=== PATIENT | male | born 1965 | race Caucasian/White ===

== ENCOUNTER → 2021-03-03 12:30 | Outpatient (BNVA) | payer SELFPAY | PROVIDERS: Visit Provider Nurse Practitioner Family | DX: E11.9 Type 2 diabetes mellitus without complications (principal); I10 Essential (primary) hypertension; Z12.5 Encounter for screening for malignant neoplasm of prostate; E78.2 Mixed hyperlipidemia | CPT/HCPCS: 80053; 80061; 81003; 82306; 83036; 83721; 83735; 84100; 84443; 85025; G0103 ==

== ENCOUNTER → 2021-11-16 08:43 | Outpatient (BNVA) | payer SELFPAY | PROVIDERS: Visit Provider Nurse Practitioner Family | DX: E11.9 Type 2 diabetes mellitus without complications (principal); I10 Essential (primary) hypertension; Z79.899 Other long term (current) drug therapy | CPT/HCPCS: 80053; 81000; 83036; 85025 ==

== ENCOUNTER → 2022-03-16 13:55 | Outpatient (BNVA) | payer SELFPAY | PROVIDERS: Visit Provider Nurse Practitioner | DX: E11.9 Type 2 diabetes mellitus without complications (principal) | CPT/HCPCS: 83036 ==

== ENCOUNTER → 2023-01-22 10:21 | Outpatient (BNVA) | payer SELFPAY | PROVIDERS: PCP Nurse Practitioner Family; Visit Provider Nurse Practitioner | DX: E11.9 Type 2 diabetes mellitus without complications (principal) | CPT/HCPCS: 80053; 80061; 83036; 83721 ==

== ENCOUNTER → 2023-08-06 09:20 | Outpatient (BNVA) | payer SELFPAY | PROVIDERS: PCP Nurse Practitioner Family; Visit Provider Nurse Practitioner Family | DX: E11.9 Type 2 diabetes mellitus without complications (principal); E78.2 Mixed hyperlipidemia; I10 Essential (primary) hypertension; Z79.899 Other long term (current) drug therapy | CPT/HCPCS: 80053; 80061; 81003; 83036; 83721; 84443; 85025 ==

== ENCOUNTER → 2023-08-30 08:40 | Outpatient (BNVA) | payer SELFPAY | PROVIDERS: PCP Nurse Practitioner Family; Visit Provider Nurse Practitioner Family | DX: E11.9 Type 2 diabetes mellitus without complications; Z12.5 Encounter for screening for malignant neoplasm of prostate | CPT/HCPCS: 85025; G0103 ==

== ENCOUNTER 2024-09-07 14:02 | Inpatient (IN) | payer SELFPAY ==
[2024-09-07] VITALS (31 sets, daily range): BP systolic 137–168; BP diastolic 84–95; PULSE 90–104; RESP 10–29; TEMP 36.6; O2SAT 88–98; BMI 34.9; BMI 32.1
[2024-09-07 17:05] LABS: Basophils % 0.1 %; Eosinophils # 0.2 10^3/uL (0.0-0.8); Eosinophils % 0.6 %; Hematocrit 49.5 % (37-53); Lymphocytes # 3.2 10^3/uL (0.8-4.8); Lymphocytes % 13.5 %; Mean Corpuscular HGB Conc 34.3 g/dL (30-55); Mean Corpuscular Hemoglobin 29.1 pg (27-33); Mean Corpuscular Volume 84.8 fl (82-101); Mean Platelet Volume 8.6 fL (7.4-10.4); Monocytes # 1.1 10^3/uL (0.2-0.9); Monocytes % 4.5 %; Neutrophils # 17.59 10^3/uL (1.8-7.7); Nucleated Red Blood Cells % 0 %; Platelet Count 506 10^3/cmm (157-399); Red Blood Count 5.84 10^6/uL (3.85-5.65); White Blood Count 23.59 10^3/uL (3.29-11.43)
[2024-09-07 17:24] LABS: Alanine Aminotransferase 8 U/L (0-41); Albumin Level 3.6 g/dL (3.5-5.2); Alkaline Phosphatase 132 U/L (40-130); Anion Gap 20.4 (5-19); Aspartate Amino Transferase 7 U/L (0-40); Blood Urea Nitrogen 22 mg/dL (6-20); Calcium 9.1 mg/dL (8.5-10.5); Carbon Dioxide 19 mmol/L (22-29); Chloride 90 mmol/L (98-107); Creatinine Clr Calc Pharmacy 72.5125; Globulin 3.3 g/dL (1.3-4.6); Glomerular Filtration Rate 56.7 mL/min (90-130); Osmolality Calculated 288 mOsm/kg (285-295); Potassium 4.4 mmol/L (3.5-5.1); Sodium 125 mmol/L (136-145); Total Bilirubin 0.4 mg/dL (0.15-1.2); Total Protein 6.9 g/dL (6.6-8.7)
[2024-09-07 17:25] LABS: Lactic Sepsis W/Reflex 1.9 mmol/L (0.5-2.2)
[2024-09-07 17:28] LABS: Glucose 542 mg/dL (65-115); Neutrophils % 81.3 %; Slide Review Slide Review Perform
[2024-09-07] MEDS: sodium chloride 0.9% 1,000 ML 999 ML IV (17:28)
[2024-09-07] MEDS: VANCOMYCIN ADD-Vantage 1,000 MG in 0.9% NaCl ADD-Vantage 250 ML 250 MG IV (17:28)
[2024-09-07] MEDS: ondansetron 2 mg/ML SDV 2 mL 4 MG IVP (17:28)
[2024-09-07] MEDS: morphine 4 mg/mL SDV 1 mL IVP (17:28)
--- NOTE | 2024-09-07 17:55 | CTR_ITS ---
PROCEDURE INFORMATION: Exam: CT Abdomen And Pelvis With Contrast Exam date and time: 09/07/2024 6:16 PM Age: 59 years old Clinical indication: Pain; Prior surgery; Surgery date: 6+ months; Surgery type: Exploratory laparotomy; C/O worsening draining perineal wound over the last three weeks. ; Additional info: Including pelvis TECHNIQUE: Imaging protocol: Computed tomography of the abdomen and pelvis with contrast. Radiation optimization: All CT scans at this facility use at least one of these dose optimization techniques: automated exposure control; mA and/or kV adjustment per patient size (includes targeted exams where dose is matched to clinical indication); or iterative reconstruction. Contrast material: OMNI 350; Contrast volume: 100 ml; Contrast route: INTRAVENOUS (IV); COMPARISON: No relevant prior studies available. RADIATION DOSE METRICS: Total DLP (mGy-cm): 1303.63 FINDINGS: Liver: The liver is enlarged. Gallbladder and biliary ducts: The gallbladder is contracted with multiple gallstones. Pancreas: Normal. No ductal dilation. Spleen: The spleen is mildly enlarged measuring 13.2 cm in length. Adrenal glands: Normal. No mass. Kidneys and ureters: Tiny bilateral cortical renal cysts. Stomach and bowel: There is mild diffuse colonic wall thickening. No signs of bowel obstruction. Appendix: No evidence of appendicitis. Intraperitoneal space: Unremarkable. No free air. No significant fluid collection. Vasculature: The abdominal aorta is free of aneurysm and dissection. Calcific plaque involves the abdominal aorta and iliac arteries. Lymph nodes: Unremarkable. No enlarged lymph nodes. Urinary bladder: Unremarkable as visualized. Reproductive: Unremarkable as visualized. Bones/joints: Unremarkable. No acute fracture. Soft tissues: There is a wound involving the right perineum with packing material in place. There is a small amount of subcutaneous emphysema involving the wound likely related to the wound being opened with packing material. There is mild surrounding inflammation at the wound site with skin thickening. No organized fluid collection. CT/CT abdomen pelvis w con* [id number] IMPRESSION: 1. Open wound involving the right perineum with packing material in place. There is surrounding skin thickening and inflammation at the wound site without organized fluid collection. There is a small amount of subcutaneous emphysema involving the wound likely related to the wound being open. 2. Mild diffuse colonic wall thickening. Clinical correlation for a mild colitis recommended. 3. Cholelithiasis. 4. Cortical renal cysts. 5. Hepatosplenomegaly. COMMENTS: Consistent with the [employer]'s Incidental Findings Committee white paper (J Am Jaskaran [employer]iol 2018): Any incidental renal lesion less than 1 cm or classified as too small to characterize, or any incidental cystic renal lesion characterized as simple-appearing, is likely benign. No follow-up imaging is recommended for these lesions per consensus recommendations based on imaging criteria.
--- NOTE | 2024-09-07 17:58 | PM.CONSULT ---
Providers/Reason For Consult Primary Care Provider: Jose A Ward History of Present Illness History of Present Illness Leonard Stevenson is a 59 year old male with past medical history of type 2 diabetes mellitus, hypertension, necrotizing fasciitis of gluteal region and abdomen For now patient has only received 1 L fluid bolus, IV vancomycin and Zosyn. Blood work appreciated. Have requested to finish the sepsis bolus, stat CT abdomen pelvis with contrast, insulin drip and added clindamycin. Have requested for surgical consult. Review of Systems General: Reports: 10 or more systems reviewed and unremarkable except in HPI and below Const: Denies: fever(s), chills, body aches, change in appetite, change in weight, malaise, night sweats, diaphoresis, change in sleep pattern, daytime sleepiness or snoring Eyes: Denies: change in vision, blurry vision, photophobia, eye discomfort or eye discharge ENMT: Denies: throat pain, enlarged tonsils, hoarseness, mouth pain, oral sores, dry mouth, tinnitus, nasal congestion or post nasal drip Card: Denies: chest pain, palpitations, irregular heart rhythm, edema, swelling of feet/ankles, lightheadedness, syncope, pre-syncope, dyspnea on exertion, orthopnea, leg pain with exertion or acrocyanosis Resp: Denies: dyspnea, productive cough, non-productive cough, wheezing, stridor, pain on inspiration, change in phlegm color, hemoptysis or chest congestion GI: Denies: abdominal pain, nausea, vomiting, hematemesis, coffee ground emesis, dysphagia, heartburn, diarrhea, constipation, bloating, GI cramping, change in bowel habits, pain on defecation, hematochezia or melena : Denies: flank pain, difficulty urinating, dysuria, urinary frequency, urinary urgency, urinary hesitancy, urinary dribbling, difficulty starting urination, change in urine stream, nocturia or hematuria Musc: Denies: neck pain, back pain, extremity pain, joint pain, joint swelling, joint redness, joint stiffness or limited range of motion Neuro: Denies: headache(s), numbness in extremities, weakness in extremities, sensory changes, lack of coordination, difficulty walking, frequent falls, dizziness, vertigo, confusion, Slurred speech present, difficulty communicating thoughts or seizure-like activity Psych: Denies: anxiety, depression, mood swings, panic attacks, hopelessness or irritability Endo: Denies: polyuria, polydipsia, tired all the time, cold intolerance, excessive sweating, flushing or heat intolerance Autl/Lymph: Denies: easy bruising or easy bleeding All/Imm: Denies: tongue swelling, facial swelling or acute wheezing Medications/Allergies Home Medications ?Medication ?Instructions ?Recorded ?Confirmed ?Last Taken ?Type rosuvastatin 5 mg tablet See Rx Instructions .Route 08/06/23 03/13/24 Unknown Rx .COMPLEX #90 tabs sildenafil 100 mg tablet (Viagra) 100 mg PO DAILY PRN sexual 08/30/23 03/13/24 Unknown Rx activity 30 days #30 tabs fenofibrate 54 mg tablet See Rx Instructions .Route 09/24/23 03/13/24 Unknown Rx .COMPLEX #30 tabs amlodipine 10 mg tablet 10 mg .Route .COMPLEX 90 days #90 03/13/24 03/13/24 Unknown Rx tabs empagliflozin 10 mg tablet 10 mg PO DAILY 30 days #90 tabs 03/13/24 03/13/24 Unknown Rx (Jardiance) lisinopril 10 mg tablet 10 mg PO DAILY #90 tabs 03/13/24 03/13/24 Unknown Rx sitagliptin phosphate 100 mg See Rx Instructions .Route 03/13/24 03/13/24 Unknown Rx tablet (Januvia) .COMPLEX 90 days #90 tabs metformin 1,000 mg tablet See Rx Instructions .Route 04/17/24 Unknown Rx .COMPLEX #90 tabs Allergies Allergy/AdvReac Type Severity Reaction Status Date / Time No Known Allergies Allergy Unverified 03/13/24 11:22 PFSH Acute PFSH: Medical History (Updated 09/07/24 @ 19:07 by Ron Grande MD) H/O necrotizing fasciitis Erectile dysfunction Diabetes mellitus, type II Prostate cancer screening Mixed hyperlipidemia Medication management Flesh-eating bacteria Hypertension Diabetes mellitus Social History Smoking and tobacco/nicotine status: current every day tobacco/nicotine user Vitals/I&O/Wt Last Vital Signs Temp 97.9 F 09/07/24 14:11 Pulse 102 H 09/07/24 14:11 Resp 17 09/07/24 17:28 BP 137/88 09/07/24 14:11 Pulse Ox 92 09/07/24 17:28 O2 Del Method Room Air 09/07/24 14:11 Weight last 48 hrs Weight 104.326 kg Physical Exam Narrative: General: No acute distress, AO x3, dehydrated HEENT: PERRLA, pupils bilaterally equal and reactive Chest: Normal vesicular breath sounds, no added sounds, equal good air entry bilaterally CVS: S1-S2 regular, no murmurs, no tachycardia, no gallops, no rubs Abdomen: Soft, nontender, no organomegaly, bowel sounds present Neuro: No focal deficits, no facial deformity, Groin: Deep necrotic wound present in right groin including the scrotal region with tunneling seen, foul-smelling with purulent base Quick SOFA Score: Respiratory Rate: 17 Blood Pressure: 137/88 [place] Coma Scale: 15 qSOFA Score: 0 If qSOFA score 2 or greater, continue: PaO2/FiO2 Ratio (mmHg): 380 Blood Pressure Mean: 104 Bilirubin (mg/dl): 0.4 Platelets (x10?/ml): 506 Creatinine (mg/dl): 1.1 SOFA Score: 1 Evaluation: Current stage of sepsis: sepsis Sepsis stage criteria used: [facility] Sep-1 and Sepsis-3 Crystalloid fluids: 30 mL/kg crystalloid fluids ordered and initiated within 3 hours Blood cultures ordered: Yes Possible source: skin/soft tissue Focused Exam: Vital signs: Temp Pulse Resp BP Pulse Ox O2 Del Method 09/07/24 17:28 17 92 09/07/24 14:11 97.9 F 102 H 17 137/88 98 Room Air Date exam was performed: 09/07/24 Time exam was performed: 19:00 Sepsis Screen No Definite Risk 09/07/24 17:45 09/07/24 Respiratory Rate 17 breaths/min (12 - 18) 09/07/24 17:28 09/07/24 Blood Pressure 137/88 mmHg 09/07/24 14:11 09/07/24 [place] Coma Scale Score 15 09/07/24 17:45 09/07/24 Quick SOFA Score 0 09/07/24 19:17 09/07/24 SOFA Score: Sebastian Coma Scale Score 15 09/07/24 17:45 09/07/24 Blood Pressure Mean 104 mmHg 09/07/24 14:11 09/07/24 Total Bilirubin 0.4 mg/dL (0.15-1.2) 09/07/24 16:57 09/07/24 Platelet Count 506 10^3/cmm (157-399) H 09/07/24 16:57 09/07/24 Creatinine 1.1 mg/dL (0.7-1.2) 09/07/24 18:05 09/07/24 SOFA Score 1 09/07/24 19:17 09/07/24 Data 09/07/24 16:57 09/07/24 18:05 Micro: Microbiology 09/07/24 17:10 Blood Culture - Preliminary Blood SPECIMEN COLLECTED 09/07/24 17:09 Blood Culture - Preliminary Blood SPECIMEN COLLECTED A&P Assessment and plan (1) Sepsis: (2) Necrotizing fasciitis of pelvic region and thigh: (3) H/O necrotizing fasciitis: (4) Diabetes mellitus, type II: Qualifiers: Diabetes mellitus skilled nursing insulin use: without termite renewal inspector use Diabetes mellitus complication status: without complication Qualified Code(s): E11.9 - Type 2 diabetes mellitus without complications (5) Hypertension: Qualifiers: Hypertension type: primary hypertension Qualified Code(s): I10 - Essential (primary) hypertension (6) DKA (diabetic ketoacidosis): (7) Hyponatremia: (8) MAGDA (acute kidney injury): Plan Sepsis: Tachycardic, Febrile, Leukocytosis Source: necrotizing fasciitis End organ damage: Acute kidney injury Lactic acid within normal limits Patient did not receive full 30 mL/kg BW. Will give 2 L fluid bolus more to finish the full sepsis bolus. Monitor blood pressures. Keep mean artery pressure 65 mmHg Check blood culture, urine culture, MRSA swab, trend procalcitonin, wound culture. Patient received vancomycin and Zosyn. Continue current antibiotics. Add clindamycin. Necrotizing fasciitis of the scrotal and pelvic region: Will get stat CT abdomen pelvis with contrast including the pelvic region to monitor for the extent of the abscess. Will request a surgical consult stat as patient might require urology or plastic surgery involvement for which he might have to be transferred to tertiary care center. Uncontrolled diabetes mellitus: DKA. In setting of severe infection and sepsis. Fluid bolus as above. Started on insulin drip. For now after fluid bolus start on NS at 75 cc/h. Once blood sugar drops below 250 will start on D5 NS at 75 cc/h. Monitor BMP every 4 hours. Target potassium over 4. Keep NPO. MAGDA/hyponatremia: Most likely in setting of dehydration and DKA. IV fluid as above. Monitor BMP every 4 hour. Guarded prognosis. Given the concern for necrotizing fasciitis of the groin region including the scrotum there is a high chance that patient might need to be transferred to tertiary center for requirement of plastic surgery/urology. Will request for urgent surgical consult and admit accordingly. For now hold off till assessed by surgical team and CT abdomen pelvis is done. PDMP PDMP Reviewed: Not Reviewed Coding Level of Care Code Acute Code for Chg Fwd Diagnoses Sepsis A41.9 Necrotizing fasciitis of pelvic region and thigh M72.6 H/O necrotizing fasciitis Z87.39 Type 2 diabetes mellitus without complication, without long-term current use of insulin E11.9 Diabetes mellitus skilled nursing insulin use: without termite renewal inspector use Diabetes mellitus complication status: without complication Primary hypertension I10 Hypertension type: primary hypertension DKA (diabetic ketoacidosis) E11.10 Hyponatremia E87.1 MAGDA (acute kidney injury) N17.9
[2024-09-07 18:29] LABS: Anion Gap 15.2 (5-19); Blood Urea Nitrogen 20 mg/dL (6-20); Calcium 8.4 mg/dL (8.5-10.5); Carbon Dioxide 20 mmol/L (22-29); Chloride 95 mmol/L (98-107); Glomerular Filtration Rate 68.8 mL/min (90-130); Glucose 468 mg/dL (65-115); Osmolality Calculated 285 mOsm/kg (285-295); Potassium 4.2 mmol/L (3.5-5.1); Sodium 126 mmol/L (136-145)
[2024-09-07] MEDS: piperacillin-tazobactam 3.375 GM in sodium chloride 0.9% (plus) 50 ML IV (18:47)
[2024-09-07 19:13] LABS: Glucose Point of Care 404 mg/dL (70-110)
[2024-09-07] MEDS: iohexol 350 mg/mL 500 mL Btl (per mL) IV (19:20)
--- NOTE | 2024-09-07 20:05 | P.ANESASSM_ITS ---
Pre-Anesthetic Assessment Height/Weight: Height 1.73 m Weight 104.326 kg Temp Pulse Resp BP Pulse Ox O2 Del Method 97.9 F 102 H 17 137/88 92 Room Air 09/07/24 14:11 09/07/24 14:11 09/07/24 17:28 09/07/24 14:11 09/07/24 17:28 09/07/24 14:11 I & D Familial anesthetic complications: None Was Beta Jcarlos taken within 24 hours: N/A Was Clonidine taken within 24 hours: N/A Last intake: > 8 hrs Social Tobacco and No alcohol Exam alert, oriented x 3, clear to auscultation bilaterally and regular rate & rhythm Airway Mallampati: Class IV Dentition: false CV/HEM Hypertension Metabolic Diabetes Mellitus, Hyperlipidemia and Morbid Obesity Anesthetic Plan ASA status: 3E Anesthesia: General Risk of > 500 ml blood loss (7ml/kg in children): No Medications/Allergies Home Medications ?Medication ?Instructions ?Recorded ?Confirmed ?Last Taken ?Type rosuvastatin 5 mg tablet See Rx Instructions .Route 0 08/06/23 03/13/24 Unknown Rx .COMPLEX #90 tabs sildenafil 100 mg tablet (Viagra) 100 mg PO DAILY PRN sexual 08/30/23 03/13/24 Unknown Rx activity 30 days #30 tabs fenofibrate 54 mg tablet See Rx Instructions .Route 0 09/24/23 03/13/24 Unknown Rx .COMPLEX #30 tabs amlodipine 10 mg tablet 10 mg .Route .COMPLEX 90 day s #90 03/13/24 03/13/24 Unknown Rx tabs empagliflozin 10 mg tablet 10 mg PO DAILY 30 days #90 tabs 03/13/24 03/13/24 Unknown Rx (Jardiance) lisinopril 10 mg tablet 10 mg PO DAILY #90 tabs 03/0203/13/24 Unknown Rx sitagliptin phosphate 100 mg See Rx Instructions .Rout e 03/13/24 03/13/24 Unknown Rx tablet (Januvia) .COMPLEX 90 days #90 tabs metformin 1,000 mg tablet See Rx Instructions .Route 1 Unknown Rx .COMPLEX #90 tabs Allergies Allergy/AdvReac Type Severity Reaction Status Date / Time No Known Allergies Allergy Unverified 03/13/24 11:22 [facility] Anesthesia Medical History (Updated 09/07/24 @ 19:07 by Ron Grande MD) H/O necrotizing fasciitis Erectile dysfunction Diabetes mellitus, type II Prostate cancer screening Mixed hyperlipidemia Medication management Flesh-eating bacteria Hypertension Diabetes mellitus Social History Smoking and tobacco/nicotine status: current every day tobacco/nicotine user Data Anesthesia 09/07/24 16:57 09/07/24 18:05 Short CBC 09/07/24 Range/Units 16:57 WBC 23.59 H (3.29-11.43) 10^3/uL Hgb 17.00 H (11.27-16.99) g/dL Hct 49.5 (37-53) % MCV 84.8 (82-101) fl Plt Count 506 H (157-399) 10^3/cmm Neut % (Auto) 81.3 % Neut # (Auto) 17.59 H (1.8-7.7) 10^3/uL BMP 09/07/24 09/07/24 16:57 18:05 Sodium 125 L 126 L Potassium 4.4 4.2 Chloride 90 L 95 L Carbon Dioxide 19 L 20 L BUN 22 H 20 Creatinine 1.3 H 1.1 Glucose 542 H* 468 H Calcium 9.1 8.4 L Liver Function 09/07/24 Range/Units 16:57 Total Bilirubin 0.4 (0.15-1.2) mg/dL AST 7 (0-40) U/L ALT 8 (0-41) U/L Alkaline Phosphatase 132 H (40-130) U/L Albumin 3.6 (3.5-5.2) g/dL Microbiology 09/07/24 17:10 Blood Culture - Preliminary Blood SPECIMEN COLLECTED 09/07/24 17:09 Blood Culture - Preliminary Blood SPECIMEN COLLECTED Cardiac Studies: 2 No Data to Display
--- NOTE | 2024-09-07 20:05 | PM.HP ---
Providers/Chief Complaint Primary Care Provider: Jose A Ward Chief Complaint: boil in groin area History of Present Illness Leonard Stevenson is a 59 year old male with past medical history of uncontrolled type 2 diabetes mellitus, hypertension, history of necrotizing fasciitis presents to the ER today because of swelling in his groin with discharge and pain getting worse over last 4 days. Discharge has been getting foul-smelling. In the ER there was a concern for abscess for which he received 1 L of IV fluid bolus, IV vancomycin and Zosyn. Hospitalist service was management. On review of labs it seems patient is having DKA with concerns for necrotizing fasciitis. Have requested for a surgical consult stat to determine the need for transfer versus immediate OR, CT abdomen pelvis with contrast to rule out urological involvement and extent of the infection, have requested for finishing of sepsis bolus, start insulin drip as per DKA protocol, added IV clindamycin to the medical treatment. Review of Systems General: Reports: 10 or more systems reviewed and unremarkable except in HPI and below Const: Denies: fever(s), chills, body aches, change in appetite, change in weight, malaise, night sweats, diaphoresis, change in sleep pattern, daytime sleepiness or snoring Eyes: Denies: change in vision, blurry vision, photophobia, eye discomfort or eye discharge ENMT: Denies: throat pain, enlarged tonsils, hoarseness, mouth pain, oral sores, dry mouth, tinnitus, nasal congestion or post nasal drip Card: Denies: chest pain, palpitations, irregular heart rhythm, edema, swelling of feet/ankles, lightheadedness, syncope, pre-syncope, dyspnea on exertion, orthopnea, leg pain with exertion or acrocyanosis Resp: Denies: dyspnea, productive cough, non-productive cough, wheezing, stridor, pain on inspiration, change in phlegm color, hemoptysis or chest congestion GI: Denies: abdominal pain, nausea, vomiting, hematemesis, coffee ground emesis, dysphagia, heartburn, diarrhea, constipation, bloating, GI cramping, change in bowel habits, pain on defecation, hematochezia or melena : Denies: flank pain, difficulty urinating, dysuria, urinary frequency, urinary urgency, urinary hesitancy, urinary dribbling, difficulty starting urination, change in urine stream, nocturia or hematuria Musc: Denies: neck pain, back pain, extremity pain, joint pain, joint swelling, joint redness, joint stiffness or limited range of motion Neuro: Denies: headache(s), numbness in extremities, weakness in extremities, sensory changes, lack of coordination, difficulty walking, frequent falls, dizziness, vertigo, confusion, Slurred speech present, difficulty communicating thoughts or seizure-like activity Psych: Denies: anxiety, depression, mood swings, panic attacks, hopelessness or irritability Endo: Denies: polyuria, polydipsia, tired all the time, cold intolerance, excessive sweating, flushing or heat intolerance Atul/Lymph: Denies: easy bruising or easy bleeding All/Imm: Denies: tongue swelling, facial swelling or acute wheezing Medications/Allergies Home Medications ?Medication ?Instructions ?Recorded ?Confirmed ?Last Taken ?Type rosuvastatin 5 mg tablet See Rx Instructions .Route 08/06/23 03/13/24 Unknown Rx .COMPLEX #90 tabs sildenafil 100 mg tablet (Viagra) 100 mg PO DAILY PRN sexual 08/30/23 03/13/24 Unknown Rx activity 30 days #30 tabs fenofibrate 54 mg tablet See Rx Instructions .Route 09/24/23 03/13/24 Unknown Rx .COMPLEX #30 tabs amlodipine 10 mg tablet 10 mg .Route .COMPLEX 90 days #90 03/13/24 03/13/24 Unknown Rx tabs empagliflozin 10 mg tablet 10 mg PO DAILY 30 days #90 tabs 03/13/24 03/13/24 Unknown Rx (Jardiance) lisinopril 10 mg tablet 10 mg PO DAILY #90 tabs 03/13/24 03/13/24 Unknown Rx sitagliptin phosphate 100 mg See Rx Instructions .Route 03/13/24 03/13/24 Unknown Rx tablet (Januvia) .COMPLEX 90 days #90 tabs metformin 1,000 mg tablet See Rx Instructions .Route 04/17/24 Unknown Rx .COMPLEX #90 tabs Allergies Allergy/AdvReac Type Severity Reaction Status Date / Time No Known Allergies Allergy Unverified 03/13/24 11:22 PFSH Acute PFSH: Medical History (Updated 09/07/24 @ 20:17 by Jj Wan MD) H/O necrotizing fasciitis Erectile dysfunction Diabetes mellitus, type II Prostate cancer screening Mixed hyperlipidemia Medication management Flesh-eating bacteria Hypertension Diabetes mellitus Social History Smoking and tobacco/nicotine status: current every day tobacco/nicotine user Vitals/I&O/Wt Last Vital Signs Temp 97.9 F 09/07/24 14:11 Pulse 102 H 09/07/24 14:11 Resp 17 09/07/24 17:28 BP 137/88 09/07/24 14:11 Pulse Ox 92 09/07/24 17:28 O2 Del Method Room Air 09/07/24 14:11 09/07/24 09/07/24 09/07/24 07:59 14:59 22:59 Intake Total 1250 / 1250 Balance 1250 / 1250 Weight last 48 hrs Weight 104.326 kg Physical Exam Narrative: General: No acute distress, AO x3 HEENT: PERRLA, pupils bilaterally equal and reactive Chest: Normal vesicular breath sounds, no added sounds, equal good air entry bilaterally CVS: S1-S2 regular, no murmurs, no tachycardia, no gallops, no rubs Abdomen: Soft, nontender, no organomegaly, bowel sounds present Neuro: No focal deficits, no facial deformity, AO x3, power 5/5 in all limbs Skin: OTHER: Data 09/07/24 16:57 09/07/24 18:05 Micro: Microbiology 09/07/24 17:10 Blood Culture - Preliminary Blood SPECIMEN COLLECTED 09/07/24 17:09 Blood Culture - Preliminary Blood SPECIMEN COLLECTED A&P Assessment and plan (1) Necrotizing fasciitis of pelvic region and thigh: (2) Sepsis: (3) DKA (diabetic ketoacidosis): (4) Diabetes mellitus, type II: Qualifiers: Diabetes mellitus complication status: without complication Diabetes mellitus custodial insulin use: without custodial use Qualified Code(s): E11.9 - Type 2 diabetes mellitus without complications (5) MAGDA (acute kidney injury): (6) Hyponatremia: (7) Hypertension: Qualifiers: Hypertension type: primary hypertension Qualified Code(s): I10 - Essential (primary) hypertension (8) H/O necrotizing fasciitis: Plan Sepsis: Tachycardic, Febrile, Leukocytosis Source: necrotizing fasciitis End organ damage: Acute kidney injury Lactic acid within normal limits Patient did not receive full 30 mL/kg BW. Will give 2 L fluid bolus more to finish the full sepsis bolus. Monitor blood pressures. Keep mean artery pressure 65 mmHg Check blood culture, urine culture, MRSA swab, trend procalcitonin, wound culture. Patient received vancomycin and Zosyn. Continue current antibiotics. Add clindamycin. Cooney catheter. Necrotizing fasciitis of the scrotal and pelvic region: Will get stat CT abdomen pelvis with contrast including the pelvic region to monitor for the extent of the abscess. Will request a surgical consult stat as patient might require urology or plastic surgery involvement for which he might have to be transferred to tertiary care center. Uncontrolled diabetes mellitus: DKA. In setting of severe infection and sepsis. Fluid bolus as above. Started on insulin drip. For now after fluid bolus start on NS at 75 cc/h. Once blood sugar drops below 250 will start on D5 NS at 75 cc/h. Monitor BMP every 4 hours. Target potassium over 4. Keep NPO. MAGDA/hyponatremia: Most likely in setting of dehydration and DKA. IV fluid as above. Monitor BMP every 4 hour. Strict input an doutput charting Guarded prognosis. Given the concern for necrotizing fasciitis of the groin region including the scrotum there is a high chance that patient might need to be transferred to tertiary center for requirement of plastic surgery/urology. Will request for urgent surgical consult and admit accordingly. For now hold off till assessed by surgical team and CT abdomen pelvis is done. Full code, n.p.o. Heparin 5000 every 12 hours for DVT prophylaxis Protonix OPD prophylaxis Analgesia: Dilaudid 1 every 4 hours as needed Glycemic control: DKA protocol insulin drip Nutrition: N.p.o. CODE STATUS: Full code PUD prophylaxis: Protonix DVT prophylaxis: Heparin 5000 Q12 hourly for DVT prophylaxis Admit to ICU. This documentation was created by [employer] fixed wing aircraft flight mechanic software. Every effort was made to ensure accuracy of fixed wing aircraft flight mechanic. Any obvious errors or omissions should be clarified with the author of the document. PDMP PDMP Reviewed: Not Reviewed Attestations Medical Necessity Statement*: Admission for more than 2 midnights for management of necrotizing fasciitis, DKA, MAGDA, severe sepsis Critical Care Time: The high probability of a clinically significant, sudden or life threatening deterioration of the patient's [endocrine, renal, surgical] system(s) required my full and direct attention, intervention and personal management. The critical care time is as shown. This time is in addition to time spent performing any reported procedures but includes the following: [x] Data and vital sign review and interpretation [x] Patient assessment, examination and intervention [x] Documentation [x] Medication orders and management Critical Care Time (min): 90 Coding Level of Care Code Critical Care >/= 30 minutes Critical care time (in minutes): 90 The high probability of a clinically significant, sudden or life threatening deterioration, as referenced in this documentation, required my full and direct attention, intervention and personal management. The critical care time shown is in addition to time spent performing any reported separately billable procedures and includes the following: [x] Data and vital sign review and interpretation [x] Patient assessment, examination and intervention [x] Medication orders and management [x] Patient/Family updates as able [x] Care Coordination and Documentation. Other Coding Information This patient has a high probability of clinically significant, sudden or life threatening deterioration of the patient's (neurological/pulmonary/cardiac/renal/ID/endocrine) systems required my full, direct attention, the highest level of physician preparedness for urgent intervention and personal management. I managed/supervised life or organ supporting interventions that required frequent physician assessment. I devoted my full attention in the ICU to the direct care of this patient for the period of time indicated above. Time I spent with family or surrogate(s) is included only if the patient was incapable of providing necessary information or participating in decision making. This time includes the following services provided: Telemetry review Hemodynamic interpretation, assessment and management Review and interpretation of CXR Review and interpretation of lab values Review and interpretation of microbiologic data and culture results Review of medications and administration Review and interpretation of Nutrition requirements and management Discussion of management with other consultants and services Clinical update to family members Diagnoses Necrotizing fasciitis of pelvic region and thigh M72.6 Sepsis A41.9 DKA (diabetic ketoacidosis) E11.10 Type 2 diabetes mellitus without complication, without long-term current use of insulin E11.9 Diabetes mellitus complication status: without complication Diabetes mellitus custodial insulin use: without termite control servicer use MAGDA (acute kidney injury) N17.9 Hyponatremia E87.1 Primary hypertension I10 Hypertension type: primary hypertension H/O necrotizing fasciitis Z87.39
--- NOTE | 2024-09-07 20:08 | W.ED.SKABFB ---
HPI - Skin/Abscess/Foreign Bdy General: Chief complaint: Skin/Abscess/Foreign Body Stated complaint: boil in groin area Time Seen by Provider: 09/07/24 16:17 History of Present Illness: This patient is a 59-year-old white male who presents to the emergency department stating that he noticed an abscess in his right groin. It started draining today massive amounts of pus. Patient states he has a history of flesh eating bacteria infection . He needed debridement of skin over the abdomen and the buttock several years ago. Patient is a type II diabetic. Related Data Previous Rx's ?Medication ?Instructions ?Recorded rosuvastatin 5 mg tablet See Rx Instructions .Route 08/06/23 .COMPLEX #90 tabs sildenafil 100 mg tablet (Viagra) 100 mg PO DAILY PRN sexual 08/30/23 activity 30 days #30 tabs fenofibrate 54 mg tablet See Rx Instructions .Route 09/24/23 .COMPLEX #30 tabs amlodipine 10 mg tablet 10 mg .Route .COMPLEX 90 days #90 03/13/24 tabs empagliflozin 10 mg tablet 10 mg PO DAILY 30 days #90 tabs 03/13/24 (Jardiance) lisinopril 10 mg tablet 10 mg PO DAILY #90 tabs 03/13/24 sitagliptin phosphate 100 mg See Rx Instructions .Route 03/13/24 tablet (Januvia) .COMPLEX 90 days #90 tabs metformin 1,000 mg tablet See Rx Instructions .Route 04/17/24 .COMPLEX #90 tabs Allergies Allergy/AdvReac Type Severity Reaction Status Date / Time No Known Allergies Allergy Unverified 03/13/24 11:22 Review of Systems General: Reports: 10 or more systems reviewed and unremarkable except in HPI and below Skin/Breast: Reports: other (Open wound right groin draining.) [facility] ED PFSH: Medical History (Updated 09/07/24 @ 19:07 by Ron Grande MD) H/O necrotizing fasciitis Erectile dysfunction Diabetes mellitus, type II Prostate cancer screening Mixed hyperlipidemia Medication management Flesh-eating bacteria Hypertension Diabetes mellitus Social History Smoking and tobacco/nicotine status: current every day tobacco/nicotine user Physical Exam Const: COMMON NORMALS: no acute distress, patient oriented x3 and no limitations GENERAL APPEARANCE: cooperative and comfortable HENMT: COMMON NORMALS: normocephalic, atraumatic, Normal nasal mucous membranes and turbinates present, moist oral mucous membranes and oropharynx normal HEAD & SCALP: normal to inspection, normocephalic and atraumatic FACE & SINUS: normal facial exam NOSE: Normal nasal mucous membranes and turbinates present Eye: COMMON NORMALS: Equal, round and reactive pupils present, EOMs intact bilaterally and conjunctivae normal GENERAL EYE: appearance normal, both eyes and all related structures CONJUNCTIVA: Yes conjunctivae normal PUPIL: Yes Equal, round and reactive pupils present Neck/C-Spine: COMMON NORMALS: supple and no JVD Chest: COMMONS NORMALS: normal inspection of the chest Resp: COMMON NORMALS: normal respiratory effort and clear to auscultation bilaterally AUSCULTATION: clear to auscultation bilaterally Cardio: COMMON NORMALS: no JVD, regular rate, regular rhythm, No gallops present (Cardio), No murmurs present (Cardio) and No rub (Cardio) RATE: regular rate RHYTHM: regular rhythm GI: COMMON NORMALS: Normal to inspection, nondistended, normoactive bowel sounds present, Soft to palpation and non-tender AUSCULTATION: Yes normoactive bowel sounds PALPATION: Yes Soft to palpation : COMMON NORMALS: Yes no CVA tenderness BLADDER/KIDNEY EXAM: Yes no CVA tenderness Back/Pelvis: COMMON NORMALS: no CVA tenderness and thoracic and lumbar spine normal to inspection Extremity: COMMON NORMALS: normal to inspection Neuro: COMMON NORMALS: patient oriented x3 and CN's II-XII intact bilaterally Psych: COMMON NORMALS: mental status grossly normal, Normal thought process present and cooperative THOUGHT PROCESS: Normal thought process present Skin: COMMON NORMALS: no rashes or lesions noted, turgor normal and no jaundice NARRATIVE SKIN EXAM: There is a large open wound in the right groin with copious amounts of purulent drainage and very foul-smelling. skin around the margins. GENERAL SKIN EXAM: no rashes or lesions noted and turgor normal Course Vital Signs: Vital signs: Vital Signs Temperature 97.9 F 09/07/24 14:11 Pulse Rate 102 H 09/07/24 14:11 Respiratory Rate 17 09/07/24 17:28 Blood Pressure 137/88 09/07/24 14:11 Pulse Oximetry 92 09/07/24 17:28 Oxygen Delivery Me thod Room Air 09/07/24 14:11 MDM - Skin/Abscess/Foreign Bdy Medicial Decision Making White blood cell count is 23.6. CMP revealed a sodium of 125 and a blood sugar of 542. Lactic acid was 1.9. Patient was given Zosyn and vancomycin. I initially discussed the case with Dr. Wilkerson,, hospitalist. He wanted me to discuss the case with general surgeon. I then discussed the case with Dr. Irby. Patient was taken to the operating room for cleanout. Patient will be admitted to the intensive care unit. Dr. Wilkerson will write the admission orders. Lab Data 09/07/24 16:57 09/07/24 18:05 Laboratory Results WBC 23.59 10^3/uL (3.29-11.43) H 09/07/24 16:57 RBC 5.84 10^6/uL (3.85-5.65) H 09/07/24 16:57 Hgb 17.00 g/dL (11.27-16.99) H 09/07/24 16:57 Hct 49.5 % (37-53) 09/07/24 16:57 MCV 84.8 fl (82-101) 09/07/24 16:57 MCH 29.1 pg (27-33) 09/07/24 16:57 MCHC 34.3 g/dL (30-55) 09/07/24 16:57 RDW 12.0 % (12.1-15.1) L 09/07/24 16:57 Plt Count 506 10^3/cmm (157-399) H 09/07/24 16:57 MPV 8.6 fL (7.4-10.4) 09/07/24 16:57 Neut % (Auto) 81.3 % 09/07/24 16:57 Lymph % (Auto) 13.5 % 09/07/24 16:57 [place] % (Auto) 4.5 % 09/07/24 16:57 Eos % (Auto) 0.6 % 09/07/24 16:57 Baso % (Auto) 0.1 % 09/07/24 16:57 Neut # (Auto) 17.59 10^3/uL (1.8-7.7) H 09/07/24 16:57 Lymph # (Auto) 3.2 10^3/uL (0.8-4.8) 09/07/24 16:57 [place] # (Auto) 1.1 10^3/uL (0.2-0.9) H 09/07/24 16:57 Eos # (Auto) 0.2 10^3/uL (0.0-0.8) 09/07/24 16:57 Baso # (Auto) 0.0 10^3/uL (0.0-0.1) 09/07/24 16:57 Nucleated RBC % (auto) 0 % 09/07/24 16:57 Nucleated RBCs # 0.0 /100WBC 09/07/24 16:57 Sodium 126 mmol/L (136-145) L 09/07/24 18:05 Potassium 4.2 mmol/L (3.5-5.1) 09/07/24 18:05 Chloride 95 mmol/L (98-107) L 09/07/24 18:05 Carbon Dioxide 20 mmol/L (22-29) L 09/07/24 18:05 Anion Gap 15.2 (5-19) 09/07/24 18:05 BUN 20 mg/dL (6-20) 09/07/24 18:05 Creatinine 1.1 mg/dL (0.7-1.2) 09/07/24 18:05 GFR Calculation 68.8 mL/min (90-130) L 09/07/24 18:05 Glucose 468 mg/dL (65-115) H 09/07/24 18:05 POC Glucose 404 mg/dL (70-110) H 09/07/24 18:50 Calculated Osmolality 285 mOsm/kg (285-295) 09/07/24 18:05 Lactic Acid 1.9 mmol/L (0.5-2.2) 09/07/24 16:57 Calcium 8.4 mg/dL (8.5-10.5) L 09/07/24 18:05 Total Bilirubin 0.4 mg/dL (0.15-1.2) 09/07/24 16:57 AST 7 U/L (0-40) 09/07/24 16:57 ALT 8 U/L (0-41) 09/07/24 16:57 Alkaline Phosphatase 132 U/L (40-130) H 09/07/24 16:57 Total Protein 6.9 g/dL (6.6-8.7) 09/07/24 16:57 Albumin 3.6 g/dL (3.5-5.2) 09/07/24 16:57 Globulin 3.3 g/dL (1.3-4.6) 09/07/24 16:57 All radiology interpretation(s) finalized by discharge Discharge Plan Discharge Condition: Stable Prescriptions: No Action sildenafil [Viagra] 100 mg tablet 100 mg PO DAILY PRN (Reason: sexual activity) 30 Days Qty: 30 1RF Rx Instructions: administer 30 minutes to 4 hours before activity rosuvastatin 5 mg tablet See Rx Instructions .ROUTE .COMPLEX Qty: 90 2RF Dose Instruction: TAKE 1 TABLET BY MOUTH DAILY Rx Instructions: TAKE 1 TABLET BY MOUTH DAILY amlodipine 10 mg tablet 10 mg .ROUTE .COMPLEX 90 Days Qty: 90 3RF Rx Instructions: 10 mg; Januvia 100 mg tablet See Rx Instructions .ROUTE .COMPLEX 90 Days Qty: 90 1RF Dose Instruction: TAKE 1 TABLET BY MOUTH EVERY DAY Rx Instructions: TAKE 1 TABLET BY MOUTH EVERY DAY lisinopril 10 mg tablet 10 mg PO DAILY Qty: 90 1RF Jardiance 10 mg tablet 10 mg PO DAILY 30 Days Qty: 90 1RF fenofibrate 54 mg tablet See Rx Instructions .ROUTE .COMPLEX Qty: 30 0RF Dose Instruction: TAKE 1 TABLET BY MOUTH EVERY DAY Rx Instructions: TAKE 1 TABLET BY MOUTH EVERY DAY metformin 1,000 mg tablet See Rx Instructions .ROUTE .COMPLEX Qty: 90 1RF Dose Instruction: TAKE 1 TABLET BY MOUTH TWICE DAILY Rx Instructions: TAKE 1 TABLET BY MOUTH TWICE DAILY Referrals: Jose A Ward, ANTONINO [Primary Care Provider] - Print Language: Mongolian Coding Level of Care Code ED Paint Line Operator for Jessy Nix
--- NOTE | 2024-09-07 20:19 | P.CONIM_ITS ---
Providers/Reason For Consult 2 Consulting Physician/Specialty*: General Surgery Reason for Consult*: Perineal soft tissue infection Primary Care Provider: Jose A Ward History of Present Illness History of Present Illness Leonard Stevenson is a 59 year old male with history of poor control diabetes, previous necrotizing soft tissue infection who presents with 4 days of pain in the right perineal area radiating to the right groin. He noticed significant drainage in this 4 days and decided to present to the emergency room today. He was noted to have a very large wound on the perineal area with significant necrosis of the subcutaneous tissue concerning for necrotizing soft tissue infection. In addition he has noted to be on DKA. Review of Systems 2 General: Reports: 10 or more systems reviewed and unremarkable except in HPI and below Medications/Allergies Home Medications ?Medication ?Instructions ?Recorded ?Confirmed ?Last Taken ?Type rosuvastatin 5 mg tablet See Rx Instructions .Route 0 08/06/23 03/13/24 Unknown Rx .COMPLEX #90 tabs sildenafil 100 mg tablet (Viagra) 100 mg PO DAILY PRN sexual 08/30/23 03/13/24 Unknown Rx activity 30 days #30 tabs fenofibrate 54 mg tablet See Rx Instructions .Route 0 09/24/23 03/13/24 Unknown Rx .COMPLEX #30 tabs amlodipine 10 mg tablet 10 mg .Route .COMPLEX 90 day s #90 03/13/24 03/13/24 Unknown Rx tabs empagliflozin 10 mg tablet 10 mg PO DAILY 30 days #90 tabs 03/13/24 03/13/24 Unknown Rx (Jardiance) lisinopril 10 mg tablet 10 mg PO DAILY #90 tabs 03/0203/13/24 Unknown Rx sitagliptin phosphate 100 mg See Rx Instructions .Rout e 03/13/24 03/13/24 Unknown Rx tablet (Januvia) .COMPLEX 90 days #90 tabs metformin 1,000 mg tablet See Rx Instructions .Route 1 Unknown Rx .COMPLEX #90 tabs Allergies Allergy/AdvReac Type Severity Reaction Status Date / Time No Known Allergies Allergy Unverified 03/13/24 11:22 PFSH Acute 2 PFSH: Medical History (Updated 09/07/24 @ 20:17 by Jj Wan MD) H/O necrotizing fasciitis Erectile dysfunction Diabetes mellitus, type II Prostate cancer screening Mixed hyperlipidemia Medication management Flesh-eating bacteria Hypertension Diabetes mellitus Social History Smoking and tobacco/nicotine status: current every day tobacco/nicotine user Vitals/I&O/Wt Last Vital Signs Temp 97.9 F 09/07/24 14:11 Pulse 102 H 09/07/24 14:11 Resp 17 09/07/24 17:28 BP 137/88 09/07/24 14:11 Pulse Ox 92 09/07/24 17:28 O2 Del Method Room Air 09/07/24 14:11 09/07/24 09/07/24 09/07/24 07:59 14:59 22:59 Intake Total 1250 / 1250 Balance 1250 / 1250 Weight last 48 hrs Weight 230 lb Physical Exam 2 GI: OTHER: Abdomen soft nontender nondistended. : OTHER: At the level of the right perineal area there is a large wound measuring about 5 x 10 cm there is abundant necrosis of the subcutaneous tissue there is moderate drainage the wound appears to track up deep into the perineum. Data 09/07/24 16:57 09/07/24 18:05 Micro: Microbiology 09/07/24 17:10 Blood Culture - Preliminary Blood SPECIMEN COLLECTED 09/07/24 17:09 Blood Culture - Preliminary Blood SPECIMEN COLLECTED A&P Assessment and plan (1) DKA (diabetic ketoacidosis): (2) Sepsis: (3) Necrotizing fasciitis of pelvic region and thigh: Plan After complete history physical examination and review of all available clinical data the following is my assessment. Patient presents with a necrotizing soft tissue infection of the perineum. He has had previous NSTI send abdominal wall requiring extensive surgery. This time presents with already draining wound with significant necrosis of the subcutaneous tissue. After evaluation of this wound and discussion with ER team and medical team we have decided to bring the patient to the OR for debridement and washout of the perineal necrotizing soft tissue infection. I discussed with all the risk and benefits of the procedure with ablation including the risks of bleeding, infection, progression into for near skin green, need for additional interventions, poor wound healing, need for tissue reconstruction for closure. Patient shows understanding agrees with the plan. Will proceed to the OR tonight. Patient will be started on broad- spectrum antibiotics and medical management will be done by primary team. PDMP PDMP Reviewed: Not Reviewed Coding Level of Care Code 85872 Diagnoses DKA (diabetic ketoacidosis) E11.10 Sepsis A41.9 Necrotizing fasciitis of pelvic region and thigh M72.6
[2024-09-07 20:35] LABS: Estmated Average Glucose 324; Hemoglobin A1C 12.9 % (4.0-6.0); Procalcitonin 0.15 ng/mL (0-0.5); Thyroid Stimulating Hormone 1.23 uIU/mL (0.27-4.20)
--- NOTE | 2024-09-07 21:26 | PM.OP ---
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 Procedure done: Chart debridement and washout of necrotizing soft tissue infection of the perineum Specimens removed/disposition: Tissue for culture and wound cultures Surgeon: Julio Irby MD Product Development Specialist: POOJA OR Staff Estimated blood loss: 5 Brief History: 59-year-old male presents with DKA and a necrotizing soft tissue infection of the perineum, after discussion we will resume benefits with proceed to the OR for debridement and washout. Procedure: The patient was brought into the OR, placed in the supine position. General anesthesia was given. The patient was placed in the lithotomy position and the perineum was prepped and draped in the usual sterile fashion. A timeout was conducted. A large wound on the right side of the perineum tracking to the right gluteal area and measuring about 10 x 6 cm was noted. The lower two thirds of the wound were covered with necrotic skin and subcutaneous tissue, there was drainage of purulent material at that level. I took wound cultures. I then proceeded to do a sharp debridement with a Metzenbaum scissor, all the necrotic tissue of the lower aspect of the wound was removed and sent to pathology for tissue culture. I then proceeded to explore the wound and noted that there was no additional tracking into the deep tissue or the scrotal region. I then used a curette to remove all the necrotic tissue from the base of the wound. I was able to achieve a nice bed of healthy bleeding tissue in the whole extension of the wound. I then proceeded to irrigate the wound with a Pulsavac using 2 L of saline. Hemostasis was then achieved and the wound was packed with iodoform soaked Kerlix. A sterile dressing was applied. The final wound measurements were 10 cm x 6 cm x 3 cm with a superomedial undermining of 3 cm and inferomedial undermining of 2 cm. The patient tolerated well the procedure, all the end of the procedure all counts were correct the patient was extubated and transferred to the ICU in stable condition
[2024-09-07 22:06] LABS: Glucose Point of Care 322 mg/dL (70-110)
--- NOTE | 2024-09-07 22:11 | PM.MISC ---
Miscellaneous Note Purpose of Documentation: Postop: Anion gap is closed I will discontinue DKA protocol I will give him Lantus 10 units along sliding scale and continue normal saline Blood sugar 322, will give insulin according to sliding scale for now and let him eat
--- NOTE | 2024-09-07 22:20 | PC.NURSE ---
Insulin Drip Insulin drip discussed with Dr. Pina; physician to place orders for lantus and discontinuation of insulin drip.
[2024-09-07] MEDS: HYDROmorphone 0.5 MG/0.5 ML INJ 1 MG IVP (22:58)
[2024-09-07] MEDS: insulin glargine 100 units/1 mL 10 UNIT SUBCUT (22:59)
[2024-09-07] MEDS: sodium chloride 0.9% 1,000 ML 75 ML IV (23:13)
[2024-09-07 23:14] LABS: Glucose Point of Care 348 mg/dL (70-110)
[2024-09-07] MEDS: clindamycin 900 MG/50 ML PREMIX 100 MG IV (23:17)
[2024-09-07] MEDS: pantoprazole 40 mg SDV IVP (23:20)
[2024-09-07] MEDS: heparin 5,000 unit/mL INJ 1 mL 5000 UNIT SUBCUT (23:20)
[2024-09-07 23:59] LABS: Lactic Sepsis W/Reflex 1.2 mmol/L (0.5-2.2)
[2024-09-08] VITALS (62 sets, daily range): BP systolic 127–170; BP diastolic 67–104; PULSE 81–102; RESP 13–27; TEMP 36.3–36.6; O2SAT 84–97
[2024-09-08 00:15] LABS: Iron 65 ug/dL (59-158); Percent Saturation 22.4 % (20-50); Total Iron Binding Capacity 290 mcg/dl; Unsaturated Iron Binding 225 ug/dL (112-347); Vitamin B12 750 pg/mL (232-1245)
[2024-09-08] MEDS: piperacillin-tazobactam 3.375 GM in sodium chloride 0.9% (plus) 50 ML IV ×3 (01:46→17:46)
[2024-09-08 02:56] LABS: MRSA PCR OZH (swab) NOT DETECTED (Negative)
[2024-09-08 04:56] LABS: Basophils # 0.1 10^3/uL (0.0-0.1); Basophils % 0.6 %; Eosinophils % 0.1 %; Hematocrit 43.3 % (37-53); Lymphocytes % 9.3 %; Mean Corpuscular HGB Conc 33.5 g/dL (30-55); Mean Corpuscular Volume 86.6 fl (82-101); Mean Platelet Volume 8.6 fL (7.4-10.4); Monocytes # 0.4 10^3/uL (0.2-0.9); Monocytes % 1.6 %; Neutrophils % 82.9 %; Nucleated Red Blood Cells % 0 %; Platelet Count 348 10^3/cmm (157-399); Red Cell Distribution Width 12.2 % (12.1-15.1); White Blood Count 21.72 10^3/uL (3.29-11.43)
[2024-09-08 05:20] LABS: Slide Review Slide Review Perform
[2024-09-08] MEDS: HYDROmorphone 0.5 MG/0.5 ML INJ 1 MG IVP ×3 (05:22→20:48)
[2024-09-08 05:31] LABS: Folate Level 6.5 ng/mL (4.5-32.2)
[2024-09-08 05:42] LABS: Alanine Aminotransferase 8 U/L (0-41); Alkaline Phosphatase 109 U/L (40-130); Anion Gap 19.7 (5-19); Aspartate Amino Transferase 8 U/L (0-40); Blood Urea Nitrogen 18 mg/dL (6-20); Carbon Dioxide 17 mmol/L (22-29); Chloride 99 mmol/L (98-107); Cholesterol 122 mg/dL (0-200); Globulin 2.9 g/dL (1.3-4.6); Glomerular Filtration Rate 76.7 mL/min (90-130); Glucose 394 mg/dL (65-115); HDL Cholesterol 23 mg/dL (60-100); LDL Cholesterol Calculated 30 mg/dL (50-129); Magnesium 1.8 mg/dL (1.7-2.3); Osmolality Calculated 290 mOsm/kg (285-295); Phosphorus 3.6 mg/dL (2.5-4.5); Potassium 4.7 mmol/L (3.5-5.1); Sodium 131 mmol/L (136-145); Total Bilirubin 0.4 mg/dL (0.15-1.2); Total Protein 5.9 g/dL (6.6-8.7); Triglycerides 345 mg/dL (0-150)
[2024-09-08] MEDS: vancomycin 1,250 MG/250 ML PIGGYBACK 166.67 MG IV (06:46)
[2024-09-08] MEDS: clindamycin 900 MG/50 ML PREMIX 100 MG IV ×3 (06:47→22:05)
--- NOTE | 2024-09-08 06:55 | P.PN_ITS ---
Subjective 2 Subjective: Good progression overnight, no significant complaints pain is better controlled. Vitals/I&O/Wt Last Vital Signs Temp 97.9 F 09/08/24 05:30 Pulse 92 09/08/24 05:30 Resp 20 H 09/08/24 05:30 BP 151/86 09/08/24 05:30 Pulse Ox 95 09/08/24 05:15 O2 Del Method Room Air 09/08/24 05:15 09/07/24 09/07/24 09/08/24 14:59 22:59 06:59 Intake Total 1300 / 1300 1760 / 3060 Output Total 1800 / 1800 Balance 1300 / 1300 -40 / 1260 Weight last 48 hrs Weight 223 lb 12.307 oz Weight 230 lb Physical Exam 2 : OTHER: Surgical wound is covered with dressing and packing. Urinary Catheter Management: Cooney: Cath Placed During This Visit: yes Urinary Catheter Date of Insertion: 09/07/24 Data 09/08/24 04:28 09/08/24 04:28 Micro: Microbiology 09/07/24 17:10 Blood Culture - Preliminary Blood SPECIMEN COLLECTED 09/07/24 17:09 Blood Culture - Preliminary Blood SPECIMEN COLLECTED A&P Assessment and plan (1) Diabetes mellitus, type II: Qualifiers: Diabetes mellitus long line teamster insulin use: without fdc use Diabetes mellitus complication status: without complication Qualified Code(s): E11.9 - Type 2 diabetes mellitus without complications (2) DKA (diabetic ketoacidosis): (3) Necrotizing fasciitis of pelvic region and thigh: Plan Patient showing good progression of NSTI of the perineum. His white count still elevated but he has been started on broad-spectrum antibiotics. Vital signs are stable clinically he looks nontoxic. The plan will be to proceed to the OR tomorrow for washout and wound VAC placement. Patient shows understanding agrees PDMP PDMP Reviewed: Not Reviewed Attestations 2 Medical Necessity Statement*: Per medical team Coding Level of Care Code Acute Code for [facility] Fwd Diagnoses Type 2 diabetes mellitus without complication, without long-term current use of insulin E11.9 Diabetes mellitus fdc insulin use: without fdc use Diabetes mellitus complication status: without complication DKA (diabetic ketoacidosis) E11.10 Necrotizing fasciitis of pelvic region and thigh M72.6
--- NOTE | 2024-09-08 07:20 | PHA.VACGOAL ---
Vancomycin Goal - Goal Vancomycin Goal:: 15-20 mg/L Vancomycin Indication:: Other - Therapy Current therapy:: Clindamycin, Pip/Tazo Day of therpy:: Day 1 of [] . Actual body weight (kg): 223 lb 12.307 oz - Data Labs: WBC 21.72 10^3/uL (3.29-11.43) H 09/08/24 04:28 RBC 5.00 10^6/uL (3.85-5.65) 09/08/24 04:28 Hgb 14.50 g/dL (11.27-16.99) 09/08/24 04:28 Hct 43.3 % (37-53) 09/08/24 04:28 MCV 86.6 fl (82-101) 09/08/24 04:28 MCH 29.0 pg (27-33) 09/08/24 04:28 MCHC 33.5 g/dL (30-55) 09/08/24 04:28 RDW 12.2 % (12.1-15.1) 09/08/24 04:28 Sodium 131 mmol/L (136-145) L 09/08/24 04:28 Potassium 4.7 mmol/L (3.5-5.1) 09/08/24 04:28 Chloride 99 mmol/L (98-107) 09/08/24 04:28 Carbon Dioxide 17 mmol/L (22-29) L 09/08/24 04:28 Anion Gap 19.7 (5-19) H 09/08/24 04:28 BUN 18 mg/dL (6-20) 09/08/24 04:28 Creatinine 1.0 mg/dL (0.7-1.2) 09/08/24 04:28 GFR Calculation 76.7 mL/min (90-130) L 09/08/24 04:28 Last dialysis session:: N/A Treatment plan:: new consult Regimen:: TELEPHARMACY: LOADING DOSE OF 1000 MG GIVEN MAINTENANCE DOSE OF 1250 MG Q12H Follow up:: WILL CONTINUE TO MONITOR AND FOLLOW UP DAILY. TROUGH TO BE OBTAINED PRIOR TO THE 4TH MAINTENANCE DOSE.
--- NOTE | 2024-09-08 08:16 | PC.PHAR ---
Patient states a this time he has only taken Aleve and Tylenol . He hasn't taken any Prescriptions. Patient is suppose to take Jenuvia , Jardiance,and Metformin .Patient states he has stopped everything over 3 weeks ago and he feels better.
[2024-09-08 08:53] LABS: Glucose Point of Care 342 mg/dL (70-110)
[2024-09-08] MEDS: insulin lispro 100 unit/1 mL SUBCUT ×4 (09:07→20:51)
[2024-09-08] MEDS: HYDROmorphone 0.5 MG/0.5 ML INJ 0.4 MG IVP ×2 (10:11→17:45)
[2024-09-08 11:32] LABS: Glucose Point of Care 320 mg/dL (70-110)
[2024-09-08] MEDS: heparin 5,000 unit/mL INJ 1 mL 5000 UNIT SUBCUT ×2 (11:36→22:02)
[2024-09-08] MEDS: sodium chloride 0.9% 1,000 ML 75 ML IV (11:40)
[2024-09-08 17:39] LABS: Glucose Point of Care 337 mg/dL (70-110)
[2024-09-08] MEDS: vancomycin 1,250 MG/250 ML PIGGYBACK 167 MG IV (17:46)
--- NOTE | 2024-09-08 19:06 | PC.NURSE ---
Shift summary: Pt rested in bed throughout the shift. Sinus rhythm noted on monitor. Pt on room air. Pt receiving multiple IV Antibiotics. Dilaudid admin 3 times this shift for pain in his right groin/bottom area. Debridement area causing him discomfort. the area was wet and felt bad according to patient, so outer layer of dressing removed and ABD placed and taped to secure it. He stated that felt better. He had on the SCDs in am then requested them to be removed due to his legs sweating. He was able demonstrate understanding of insulin sliding scale and use of insulin syringe today. He has been up to [facility] tiwc this shift with 2 bouts of his chronic diarrhea. Docusate sodium held/ refused due to the chronic diarrhea. He ate majority of his meals.
--- NOTE | 2024-09-08 19:50 | PM.PN ---
Subjective Subjective: Doing well post op Vitals/I&O/Wt Last Vital Signs Temp 98 F 09/08/24 16:00 Pulse 96 09/08/24 18:00 Resp 23 H 09/08/24 18:00 BP 163/87 09/08/24 18:00 Pulse Ox 94 09/08/24 18:00 O2 Del Method Room Air 09/08/24 18:00 09/08/24 09/08/24 09/08/24 06:59 14:59 22:59 Intake Total 1760 / 3060 2748.75 / 2748.75 50 / 2798.75 Output Total 1800 / 1800 1550 / 1550 Balance -40 / 1260 2748.75 / 2748.75 -1500 / 1248.75 Weight last 48 hrs Weight 102 kg Weight 101.5 kg Weight 104.326 kg Physical Exam Narrative: General: No acute distress, AO x3 HEENT: PERRLA, pupils bilaterally equal and reactive Chest: Normal vesicular breath sounds, no added sounds, equal good air entry bilaterally CVS: S1-S2 regular, no murmurs, no tachycardia, no gallops, no rubs Abdomen: Soft, nontender, no organomegaly, bowel sounds present Neuro: No focal deficits, no facial deformity, AO x3, power 5/5 in all limbs Skin: OTHER: Urinary Catheter Management: Cooney: Cath Placed During This Visit: yes Reason for Continuing Indwelling Catheter: Accurate Measurement of Urinary Output in Critically Ill Patients Urinary Catheter Date of Insertion: 09/07/24 Data 09/08/24 04:28 09/08/24 04:28 Micro: Microbiology 09/07/24 17:10 Blood Culture - Preliminary Blood NEGATIVE TO DATE 09/07/24 17:09 Blood Culture - Preliminary Blood NEGATIVE TO DATE 09/07/24 21:07 Gram Stain - Final Buttock 09/07/24 21:07 Gram Stain - Final Buttock A&P Assessment and plan (1) Necrotizing fasciitis of pelvic region and thigh: (2) Sepsis: (3) DKA (diabetic ketoacidosis): (4) Diabetes mellitus, type II: Qualifiers: Diabetes mellitus custodial insulin use: without truck terminal manager use Diabetes mellitus complication status: without complication Qualified Code(s): E11.9 - Type 2 diabetes mellitus without complications (5) MAGDA (acute kidney injury): (6) Hyponatremia: (7) Hypertension: Qualifiers: Hypertension type: primary hypertension Qualified Code(s): I10 - Essential (primary) hypertension (8) H/O necrotizing fasciitis: Plan Seen post op D/w Surgery NPO at midnight for OR in am Will have wound vac placed IV abx Continue insulin Adjust as needed plate corrector consult Will need insulin at discharge Outpatient endo consult Ok to transfer to medical floor PDMP PDMP Reviewed: Not Reviewed Attestations Medical Necessity Statement*: Admission for more than 2 midnights for management of necrotizing fasciitis, DKA, MAGDA, severe sepsis Critical Care Time: The high probability of a clinically significant, sudden or life threatening deterioration of the patient's [endocrine, renal, surgical] system(s) required my full and direct attention, intervention and personal management. The critical care time is as shown. This time is in addition to time spent performing any reported procedures but includes the following: [x] Data and vital sign review and interpretation [x] Patient assessment, examination and intervention [x] Documentation [x] Medication orders and management Critical Care Time (min): 90 Coding Level of Care Code Acute Code for [facility] Diagnoses Necrotizing fasciitis of pelvic region and thigh M72.6 Sepsis A41.9 DKA (diabetic ketoacidosis) E11.10 Type 2 diabetes mellitus without complication, without long-term current use of insulin E11.9 Diabetes mellitus truck terminal manager insulin use: without truck terminal manager use Diabetes mellitus complication status: without complication MAGDA (acute kidney injury) N17.9 Hyponatremia E87.1 Primary hypertension I10 Hypertension type: primary hypertension H/O necrotizing fasciitis Z87.39
--- NOTE | 2024-09-08 20:01 | USCV_ITS ---
Leonard Stevenosn Age: 59 Gender: M : 1965 Exam Date: 09/08/2024 09:04 Ordering Phys: Ron Grande MD Technologist: LINWOOD [place] [facility] [place] CHF BP: 160 / 87 HR: 86 Rhythm: Sinus Technical Quality: Adequate MEASUREMENTS (Male / Female) Normal Values 2D ECHO LV Diastolic Diameter PLAX 4.4 cm 4.2 - 5.9 / 3.9 - 5.3 cm IVS Diastolic Thickness 1.5 cm 0.6 - 1.0 / 0.6 - 0.9 cm IVS Systolic Thickness 2.1 cm LVPW Diastolic Thickness 1.3 cm 0.6 - 1.0 / 0.6 - 0.9 cm LVPW Systolic Thickness 2.0 cm LVOT Diameter 2.0 cm LV Ejection Fraction 2D Teich 57.9 % LV Ejection Fraction MOD 4C 68.0 % LV Ejection Fraction MOD 2C 70.5 % LV Ejection Fraction 2C AL 71.5 % LA Diameter 3.8 cm RA Systolic Volume 4C AL 49.5 ml RA Systolic Volume 4C MOD 44.7 ml LA Sys Volume AL 53.7 cm cubed LA Sys Volume Index AL 23.6 cm cubed/m squared Aorta at Sinotubular Diameter 3.0 cm IVC Diameter 2.3 cm M-MODE LA Ao Ratio MM 1.1 AV Cusp Separation MM 2.0 cm DOPPLER AV Peak Velocity 124.3 cm/s LVOT Peak Velocity 97.0 cm/s AV Area Cont Eq vti 2.8 cm squared AV Area Cont Eq pk 2.5 cm squared MV Peak Velocity 102.0 cm/s MV Area PHT 4.5 cm squared Mitral E to A Ratio 0.7 TR Peak Velocity 107.0 cm/s TR Peak Gradient 4.6 mmHg TV Peak E Velocity 86.0 cm/s PV Peak Velocity 101.0 cm/s FINDINGS Left Ventricle Normal left ventricular size, systolic function and wall thickness, with no regional wall motion abnormalities. Left ventricular ejection fraction is estimated at 60 %. Grade I/IV diastolic dysfunction (abnormal relaxation filling pattern), normal to mildly elevated filling pressures. Right Ventricle The right ventricle is normal in size and function. Right Atrium The right atrium is normal in size. Left Atrium The left atrium is normal in size. Mitral Valve Structurally normal mitral valve. Mild mitral valve regurgitation. . Aortic Valve Structurally normal aortic valve without significant sclerosis or stenosis. There is no aortic regurgitation. Tricuspid Valve Structurally normal tricuspid valve without significant stenosis or regurgitation. Pulmonary artery systolic pressure is normal. Pulmonic Valve Structurally normal pulmonic valve without significant stenosis. There is no pulmonic regurgitation. Pericardium Normal pericardium without effusion. Aorta Normal ascending aorta dimension. IVC The inferior vena cava appears normal. CONCLUSIONS Normal left ventricular size, systolic function and wall thickness, with no regional wall motion abnormalities. Left ventricular ejection fraction is estimated at 60 %. Grade I/IV diastolic dysfunction (abnormal relaxation filling pattern), normal to mildly elevated filling pressures. Structurally normal mitral valve. Mild mitral valve regurgitation. . There is no pericardial effusion. Right atrial pressure is around 5 mm of mercury. Monse Hill MD (Electronically Signed) Final Date: 08 September 2024 11:45 S
[2024-09-08 20:42] LABS: Glucose Point of Care 304 mg/dL (70-110)
[2024-09-08] MEDS: insulin glargine 100 units/1 mL 10 UNIT SUBCUT (20:52)
[2024-09-08] MEDS: pantoprazole 40 mg SDV IVP (22:03)
[2024-09-09] VITALS (65 sets, daily range): BP systolic 135–184; BP diastolic 79–113; PULSE 69–104; RESP 10–30; TEMP 36.4; O2SAT 90–98
[2024-09-09] MEDS: HYDROmorphone 0.5 MG/0.5 ML INJ 0.4 MG IVP ×5 (01:12→19:30)
[2024-09-09] MEDS: piperacillin-tazobactam 3.375 GM in sodium chloride 0.9% (plus) 50 ML IV ×3 (01:14→18:06)
[2024-09-09 04:05] LABS: Hematocrit 43.9 % (37-53); Mean Corpuscular HGB Conc 33.3 g/dL (30-55); Mean Corpuscular Hemoglobin 28.9 pg (27-33); Mean Corpuscular Volume 86.9 fl (82-101); Mean Platelet Volume 8.6 fL (7.4-10.4); Platelet Count 409 10^3/cmm (157-399); Red Blood Count 5.05 10^6/uL (3.85-5.65); Red Cell Distribution Width 12.4 % (12.1-15.1)
[2024-09-09] MEDS: HYDROmorphone 0.5 MG/0.5 ML INJ 1 MG IVP ×3 (04:26→22:46)
[2024-09-09 05:02] LABS: Alanine Aminotransferase 7 U/L (0-41); Alkaline Phosphatase 100 U/L (40-130); Anion Gap 15.1 (5-19); Aspartate Amino Transferase 8 U/L (0-40); Blood Urea Nitrogen 13 mg/dL (6-20); Calcium 8.4 mg/dL (8.5-10.5); Carbon Dioxide 22 mmol/L (22-29); Chloride 101 mmol/L (98-107); Globulin 3.2 g/dL (1.3-4.6); Glomerular Filtration Rate 76.7 mL/min (90-130); Glucose 169 mg/dL (65-115); Magnesium 1.8 mg/dL (1.7-2.3); Osmolality Calculated 282 mOsm/kg (285-295); Phosphorus 1.7 mg/dL (2.5-4.5); Potassium 4.1 mmol/L (3.5-5.1); Sodium 134 mmol/L (136-145); Total Bilirubin 0.4 mg/dL (0.15-1.2); Total Protein 6.2 g/dL (6.6-8.7)
[2024-09-09 05:18] LABS: Slide Review Slide Review Perform
[2024-09-09 05:19] LABS: Absolute Eosinophils 0.5 10^3/cmm (0.0-0.7); Absolute Segmented Neutrophil 11.2 10/cmm (1.6-7.1); Eosinophils 3 %; Lymphocytes 20 %; Lymphocytes Absolute 4.6 10^3/cmm (1.2-3.4); Monocytes Absolute 0.7 10^3/cmm (0.1-0.6); Platelet Estimate Normal (Normal); Segmented Neutrophils 63 %; Total Cells Counted 100 (0-100)
[2024-09-09] MEDS: clindamycin 900 MG/50 ML PREMIX 100 MG IV ×3 (05:42→22:53)
[2024-09-09] MEDS: vancomycin 1,250 MG/250 ML PIGGYBACK 167 MG IV (05:46)
--- NOTE | 2024-09-09 06:39 | P.HPUD_ITS ---
Surgery/Procedure H&P Update DATE OF PROCEDURE: September 09, 2024 DATE H&P PERFORMED: 09/07/24 H&P UPDATE INFORMATION: I have reviewed H&P completed within last 30 days, I have examined patient prior to procedure, No changes to prior documentation and [place] [facility] [place] indicated PLANNED PROCEDURE: Operation Date: 09/07/24 20:15 Proposed Procedures p Incision And Drainage I&D(Not Applicable) - Julio Irby MD Operation Date: 09/09/24 07:00 Proposed Procedures p Incision And Drainage I&D(Not Applicable) - Julio Irby MD s Wound Vac Placement(Not Applicable) - Julio Irby MD
[2024-09-09 06:57] LABS: Glucose Point of Care 226 mg/dL (70-110)
[2024-09-09] MEDS: insulin lispro 100 unit/1 mL SUBCUT ×4 (07:01→20:45)
--- NOTE | 2024-09-09 07:56 | PM.OP ---
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 Procedure done: Washout debridement and wound VAC placement of perineal wound measuring 10 x 7 x 3 Implants: Granulofoam sponge Specimens removed/disposition: none Surgeon: Julio Irby MD Sewer Connector: POOJA OR Staff Estimated blood loss: 5 Brief History: 59-year-old male with NSTI of the perineum, underwent debridement and washout. We plan to proceed to the OR for washout and wound VAC placement today. All risk benefits were discussed and documented in the preop note. Procedure: Patient was brought into the OR. General anesthesia was given. He was placed in a lithotomy position. The perineum was prepped and draped in usual sterile fashion. A timeout was conducted. I proceeded to explore the wound, no evidence of further drainage or tracking into the surrounding tissue. Very minimal surrounding inflammation. The wound was washed with copious amount of saline. I used a curette to remove small amount of fibrinous material from the base especially in the upper portion of the wound. The wound was irrigated once again. Hemostasis was achieved. I then proceeded to place the wound VAC. I used black sponge for the base of the wound and then cover with the VAC dressing. Good seal was obtained. The patient tolerated well the procedure, was extubated and transferred to the ICU in stable condition.
--- NOTE | 2024-09-09 08:01 | P.PN_ITS ---
Subjective 2 Subjective: Patient is doing well this morning, he was taken to the OR for Willmann placement and wound appears to be healing well. Vitals/I&O/Wt Last Vital Signs Temp 97.6 F 09/09/24 05:53 Pulse 91 09/09/24 06:00 Resp 17 09/09/24 06:00 BP 155/79 09/09/24 06:00 Pulse Ox 95 09/09/24 06:00 O2 Del Method Room Air 09/08/24 18:00 09/08/24 09/09/24 09/09/24 22:59 06:59 14:59 Intake Total 400 / 3148.75 100 / 3248.75 Output Total 1550 / 1550 1200 / 2750 Balance -1150 / 1598.75 -1100 / 498.75 Weight last 48 hrs Weight 233 lb 11.04 oz Weight 224 lb 13.944 oz Weight 223 lb 12.307 oz Weight 230 lb Physical Exam 2 : OTHER: On the right of the perineum tracking to the right gluteal region there is a large cavity that is noted to have a wound VAC in place Urinary Catheter Management: Cooney: Cath Placed During This Visit: yes Reason for Continuing Indwelling Catheter: Accurate Measurement of Urinary Output in Critically Ill Patients Urinary Catheter Date of Insertion: 09/07/24 Data 09/09/24 03:30 09/09/24 03:30 Micro: Microbiology 09/07/24 17:10 Blood Culture - Preliminary Blood NEGATIVE TO DATE 09/07/24 17:09 Blood Culture - Preliminary Blood NEGATIVE TO DATE 09/07/24 21:07 Gram Stain - Final Buttock 09/07/24 21:07 Gram Stain - Final Buttock A&P Assessment and plan (1) Diabetes mellitus, type II: Qualifiers: Diabetes mellitus group home insulin use: without group home use Diabetes mellitus complication status: without complication Qualified Code(s): E11.9 - Type 2 diabetes mellitus without complications (2) Necrotizing fasciitis of pelvic region and thigh: Plan Patient showing good progression of after debridement and washout of perineal necrotizing soft tissue infection. Recommend to continue broad-spectrum antibiotics and medical management as per medical ICU team. From the surgical standpoint he will require a wound VAC dressing change On Sunday. Once there is a consistent downtrend his white count and he is glucose is under control he may be able to transition to the outpatient setting. PDMP PDMP Reviewed: Not Reviewed Attestations 2 Medical Necessity Statement*: Per medical team Coding Level of Care Code Acute Code for [facility] Fwd Diagnoses Type 2 diabetes mellitus without complication, without long-term current use of insulin E11.9 Diabetes mellitus bed bug exterminator insulin use: without bed bug exterminator use Diabetes mellitus complication status: without complication Necrotizing fasciitis of pelvic region and thigh M72.6
[2024-09-09 08:18] LABS: Glucose Point of Care 215 mg/dL (70-110)
[2024-09-09] MEDS: docusate sodium 100 mg Capsule PO ×2 (08:22→18:06)
--- NOTE | 2024-09-09 08:31 | ANE.PACU2 ---
Inpatient post-anesthesia follow up: Airway intact: Yes Vital signs: Temperature 97.6 F Pulse Rate 91 Respiratory Rate 17 Blood Pressure 155/79 Pulse Oximetry 95 Oxygen Delivery Me thod Room Air Oxygen Flow Rate Fraction of Inspir ed Oxygen Hydration adequate: Yes Nausea and vomiting: No Pain level: 1 Mental status: Baseline
[2024-09-09 08:39] LABS: Glucose Point of Care 408 mg/dL (70-110)
--- NOTE | 2024-09-09 09:55 | PC.NURSE ---
Dr. Thacker ordered to hold heparin due to recent surgery.
[2024-09-09 11:22] LABS: Glucose Point of Care 212 mg/dL (70-110)
[2024-09-09] MEDS: hyDRALAzine 20 mg/mL INJ 1 mL 10 MG IVP (11:26)
[2024-09-09 17:12] LABS: Glucose Point of Care 201 mg/dL (70-110)
[2024-09-09 17:57] LABS: Vancomycin Trough 12.7 ug/mL (10-15)
[2024-09-09] MEDS: vancomycin 1,500 MG/300 ML PIGGYBACK 200 MG IV (18:05)
[2024-09-09 20:44] LABS: Glucose Point of Care 227 mg/dL (70-110)
[2024-09-09] MEDS: insulin glargine 100 units/1 mL 15 UNIT SUBCUT (20:46)
[2024-09-09] MEDS: pantoprazole 40 mg SDV IVP (22:55)
[2024-09-09] MEDS: heparin 5,000 unit/mL INJ 1 mL 5000 UNIT SUBCUT (22:57)
--- NOTE | 2024-09-09 23:04 | P.PN_ITS ---
Subjective 2 Subjective: Doing well post op today after wound vac Was noted to be slightly hypertensive Vitals/I&O/Wt Last Vital Signs Temp 97.6 F 09/09/24 08:30 Pulse 102 H 09/09/24 22:00 Resp 18 09/09/24 22:00 BP 150/89 09/09/24 22:00 Pulse Ox 90 09/09/24 22:00 O2 Del Method Room Air 09/09/24 18:15 09/09/24 09/09/24 09/10/24 14:59 22:59 06:59 Intake Total 500 / 500 1070 / 1570 Output Total 1855 / 1855 500 / 2355 Balance -1355 / -1355 570 / -785 Weight last 48 hrs Weight 106 kg Weight 102 kg Weight 101.5 kg Physical Exam 2 Narrative: General: No acute distress, AO x3 HEENT: PERRLA, pupils bilaterally equal and reactive Chest: Normal vesicular breath sounds, no added sounds, equal good air entry bilaterally CVS: S1-S2 regular, no murmurs, no tachycardia, no gallops, no rubs Abdomen: Soft, nontender, no organomegaly, bowel sounds present Neuro: No focal deficits, no facial deformity, AO x3, power 5/5 in all limbs Skin: OTHER: Urinary Catheter Management: Martinez: Cath Placed During This Visit: yes Reason for Continuing Indwelling Catheter: Accurate Measurement of Urinary Output in Critically Ill Patients Urinary Catheter Date of Insertion: 09/07/24 Data 09/09/24 03:30 09/09/24 03:30 Micro: Microbiology 09/07/24 17:50 Wound Culture - Final Groin Enterococcus faecalis 09/07/24 21:07 Gram Stain - Final Buttock Abscess Culture - Preliminary 09/07/24 21:07 Gram Stain - Final Buttock Tissue Culture - Preliminary 09/07/24 21:07 Anaerobic Culture - Preliminary Buttock 09/07/24 21:07 Anaerobic Culture - Preliminary Buttock A&P Assessment and plan (1) Necrotizing fasciitis of pelvic region and thigh: (2) Sepsis: (3) DKA (diabetic ketoacidosis): (4) Diabetes mellitus, type II: Qualifiers: Diabetes mellitus intermodal owner operator truck driver insulin use: without intermodal owner operator truck driver use Diabetes mellitus complication status: without complication Qualified Code(s): E11.9 - Type 2 diabetes mellitus without complications (5) MAGDA (acute kidney injury): (6) Hyponatremia: (7) Hypertension: Qualifiers: Hypertension type: primary hypertension Qualified Code(s): I10 - Essential (primary) hypertension (8) H/O necrotizing fasciitis: Plan Continue IV abx for now Follow up on culture and sensitivites Wound vac placed today SW to assist with discharge planning with wound vac Discussed with surgery - will beed PO abx at discharge Uncontoled diabetes mellitus Increase lantus to 15 units Goal < 200 Will need insulin at discharge SW to assist with cost Endocrinology referral after discharge Will d/c martinez in am and voiding trials Hydralazine added PRN for BP PDMP PDMP Reviewed: Not Reviewed Attestations 2 Medical Necessity Statement*: Admission for more than 2 midnights for management of necrotizing fasciitis, DKA, MAGDA, severe sepsis Critical Care Time: The high probability of a clinically significant, sudden or life threatening deterioration of the patient's [endocrine, renal, surgical] system(s) required my full and direct attention, intervention and personal management. The critical care time is as shown. This time is in addition to time spent performing any reported procedures but includes the following: [x] Data and vital sign review and interpretation [x] Patient assessment, examination and intervention [x] Documentation [x] Medication orders and management Critical Care Time (min): 90 Coding Level of Care Code Acute Code for [facility] Fwd Diagnoses Necrotizing fasciitis of pelvic region and thigh M72.6 Sepsis A41.9 DKA (diabetic ketoacidosis) E11.10 Type 2 diabetes mellitus without complication, without long-term current use of insulin E11.9 Diabetes mellitus intermodal owner operator truck driver insulin use: without intermodal owner operator truck driver use Diabetes mellitus complication status: without complication MAGDA (acute kidney injury) N17.9 Hyponatremia E87.1 Primary hypertension I10 Hypertension type: primary hypertension H/O necrotizing fasciitis Z87.39
[2024-09-10] VITALS (58 sets, daily range): BP systolic 130–186; BP diastolic 72–113; PULSE 76–104; RESP 12–25; TEMP 36.3–36.6; O2SAT 91–98
[2024-09-10] MEDS: HYDROmorphone 0.5 MG/0.5 ML INJ 0.4 MG IVP ×3 (02:36→17:40)
[2024-09-10] MEDS: piperacillin-tazobactam 3.375 GM in sodium chloride 0.9% (plus) 50 ML IV ×3 (02:37→17:43)
[2024-09-10 04:08] LABS: Basophils # 0.1 10^3/uL (0.0-0.1); Basophils % 0.9 %; Eosinophils # 0.3 10^3/uL (0.0-0.8); Hematocrit 43.9 % (37-53); Lymphocytes # 3.1 10^3/uL (0.8-4.8); Lymphocytes % 23.6 %; Mean Corpuscular HGB Conc 33.9 g/dL (30-55); Mean Corpuscular Hemoglobin 28.9 pg (27-33); Mean Corpuscular Volume 85.2 fl (82-101); Mean Platelet Volume 8.4 fL (7.4-10.4); Monocytes # 0.6 10^3/uL (0.2-0.9); Monocytes % 4.2 %; Neutrophils # 8.56 10^3/uL (1.8-7.7); Neutrophils % 64.3 %; Nucleated Red Blood Cells % 0 %; Platelet Count 333 10^3/cmm (157-399); Red Blood Count 5.15 10^6/uL (3.85-5.65); Red Cell Distribution Width 12.1 % (12.1-15.1); White Blood Count 13.32 10^3/uL (3.29-11.43)
[2024-09-10 04:38] LABS: Magnesium 1.7 mg/dL (1.7-2.3); Phosphorus 2.2 mg/dL (2.5-4.5)
[2024-09-10 04:39] LABS: Alanine Aminotransferase 8 U/L (0-41); Albumin Level 3.1 g/dL (3.5-5.2); Alkaline Phosphatase 103 U/L (40-130); Aspartate Amino Transferase 9 U/L (0-40); Blood Urea Nitrogen 9 mg/dL (6-20); Calcium 8.1 mg/dL (8.5-10.5); Carbon Dioxide 19 mmol/L (22-29); Chloride 101 mmol/L (98-107); Globulin 2.8 g/dL (1.3-4.6); Glomerular Filtration Rate 99.3 mL/min (90-130); Glucose 223 mg/dL (65-115); Osmolality Calculated 280 mOsm/kg (285-295); Sodium 132 mmol/L (136-145); Total Bilirubin 0.4 mg/dL (0.15-1.2); Total Protein 5.9 g/dL (6.6-8.7)
[2024-09-10 04:46] LABS: Anion Gap 15.5 (5-19); Potassium 3.5 mmol/L (3.5-5.1)
[2024-09-10] MEDS: HYDROmorphone 0.5 MG/0.5 ML INJ 1 MG IVP ×3 (05:56→21:40)
[2024-09-10] MEDS: vancomycin 1,500 MG/300 ML PIGGYBACK 200 MG IV ×2 (06:13→17:42)
[2024-09-10] MEDS: clindamycin 900 MG/50 ML PREMIX 100 MG IV ×3 (06:14→21:22)
[2024-09-10 06:56] LABS: Glucose Point of Care 223 mg/dL (70-110)
[2024-09-10] MEDS: insulin lispro 100 unit/1 mL SUBCUT ×4 (07:57→21:22)
[2024-09-10] MEDS: docusate sodium 100 mg Capsule PO (08:00)
--- NOTE | 2024-09-10 08:39 | P.PN_ITS ---
Subjective 2 Subjective: Excellent progression over the last 24 hours. No significant pain. Vital signs have remained stable. Vitals/I&O/Wt Last Vital Signs Temp 97.3 F L 09/10/24 06:00 Pulse 76 09/10/24 06:00 Resp 19 H 09/10/24 06:00 BP 165/104 09/10/24 06:00 Pulse Ox 96 09/10/24 06:00 O2 Del Method Room Air 09/09/24 18:15 09/09/24 09/10/24 09/10/24 22:59 06:59 14:59 Intake Total 1070 / 1570 700 / 2270 Output Total 500 / 2355 2500 / 4855 Balance 570 / -785 -1800 / -2585 Weight last 48 hrs Weight 233 lb Weight 233 lb 11.04 oz Physical Exam 2 : OTHER: Perineal wound is covered with a wound VAC dressing, there is no leak the output is minimal serosanguineous Urinary Catheter Management: Cooney: Cath Placed During This Visit: yes Reason for Continuing Indwelling Catheter: Accurate Measurement of Urinary Output in Critically Ill Patients Urinary Catheter Date of Insertion: 09/07/24 Data 09/10/24 03:57 09/10/24 03:57 Micro: Microbiology 09/07/24 17:50 Wound Culture - Final Groin Enterococcus faecalis 09/07/24 21:07 Gram Stain - Final Buttock Abscess Culture - Preliminary 09/07/24 21:07 Gram Stain - Final Buttock Tissue Culture - Preliminary 09/07/24 21:07 Anaerobic Culture - Preliminary Buttock 09/07/24 21:07 Anaerobic Culture - Preliminary Buttock A&P Assessment and plan (1) Diabetes mellitus, type II: Qualifiers: Diabetes mellitus senior care insulin use: without termite control technician use Diabetes mellitus complication status: without complication Qualified Code(s): E11.9 - Type 2 diabetes mellitus without complications (2) Necrotizing fasciitis of pelvic region and thigh: Plan Patient is showing very good progression after debridement of perineal necrotizing soft tissue infection and subsequent placement of wound VAC. Vitals are stable white count is trending down is 13 today, glucose is slowly improving. Will plan on wound VAC change on Sunday. He will able to obtain portable wound VAC before Sunday may be able to change it tomorrow to allow the patient to transition to the outpatient setting if he is cleared from the medical standpoint. Patient shows understanding agrees with plan. PDMP PDMP Reviewed: Not Reviewed Attestations 2 Medical Necessity Statement*: Per medical team Coding Level of Care Code Acute Code for Chg Fwd Diagnoses Type 2 diabetes mellitus without complication, without long-term current use of insulin E11.9 Diabetes mellitus termite control technician insulin use: without senior care use Diabetes mellitus complication status: without complication Necrotizing fasciitis of pelvic region and thigh M72.6
[2024-09-10] MEDS: heparin 5,000 unit/mL INJ 1 mL 5000 UNIT SUBCUT ×2 (10:30→21:22)
[2024-09-10 11:00] LABS: Glucose Point of Care 281 mg/dL (70-110)
[2024-09-10] MEDS: hyDRALAzine 20 mg/mL INJ 1 mL 10 MG IVP (12:53)
--- NOTE | 2024-09-10 16:19 | PC.NURSE ---
Patient report was given to LEANNA Lopez in [facility]. Patient was transferred with all their belongings. Patient was stable during transfer.
[2024-09-10 16:32] LABS: Glucose Point of Care 279 mg/dL (70-110)
--- NOTE | 2024-09-10 20:15 | P.PN_ITS ---
Subjective 2 Subjective: Doing well, no new events overnight. Pain controlled. Vitals/I&O/Wt Last Vital Signs Temp 97.5 F L 09/10/24 19:57 Pulse 92 09/10/24 19:57 Resp 18 09/10/24 19:57 BP 176/94 09/10/24 19:57 Pulse Ox 93 09/10/24 19:57 O2 Del Method Room Air 09/10/24 17:29 09/10/24 09/10/24 09/10/24 06:59 14:59 22:59 Intake Total 700 / 2270 1000 / 1000 400 / 1400 Output Total 2500 / 4855 450 / 450 1075 / 1525 Balance -1800 / -2585 550 / 550 -675 / -125 Weight last 48 hrs Weight 105.687 kg Weight 106 kg Physical Exam 2 Narrative: General: No acute distress, AO x3 HEENT: PERRLA, pupils bilaterally equal and reactive Chest: Normal vesicular breath sounds, no added sounds, equal good air entry bilaterally CVS: S1-S2 regular, no murmurs, no tachycardia, no gallops, no rubs Abdomen: Soft, nontender, no organomegaly, bowel sounds present Neuro: No focal deficits, no facial deformity, AO x3, power 5/5 in all limbs Skin: OTHER: Urinary Catheter Management: Martinez: Cath Placed During This Visit: yes Reason for Continuing Indwelling Catheter: Other Urinary Catheter Date of Insertion: 09/07/24 Data 09/10/24 03:57 09/10/24 03:57 Micro: Microbiology 09/07/24 21:07 Anaerobic Culture - Preliminary Buttock 09/07/24 21:07 Anaerobic Culture - Preliminary Buttock 09/07/24 21:07 Gram Stain - Final Buttock Tissue Culture - Preliminary Strep species, gamma-hemolytic 09/07/24 21:07 Gram Stain - Final Buttock Abscess Culture - Preliminary Strep species, gamma-hemolytic A&P Assessment and plan (1) Necrotizing fasciitis of pelvic region and thigh: (2) Sepsis: (3) DKA (diabetic ketoacidosis): (4) Diabetes mellitus, type II: Qualifiers: Diabetes mellitus ad terminal makeup operator insulin use: without ad terminal makeup operator use Diabetes mellitus complication status: without complication Qualified Code(s): E11.9 - Type 2 diabetes mellitus without complications (5) MAGDA (acute kidney injury): (6) Hyponatremia: (7) Hypertension: Qualifiers: Hypertension type: primary hypertension Qualified Code(s): I10 - Essential (primary) hypertension (8) H/O necrotizing fasciitis: Plan Continue IV abx for now Follow up on culture and sensitivites Wound vac placed today SW to assist with discharge planning with wound vac Uncontoled diabetes mellitus lantus to 15 units Goal < 200 Will need insulin at discharge SW to assist with cost Endocrinology referral after discharge - Additional lantus 10 units in am - Will arrange for endo consult in am Will d/c martinez in am and voiding trials Hydralazine added PRN for BP Possible d/c home in one day PDMP PDMP Reviewed: Not Reviewed Attestations 2 Medical Necessity Statement*: Admission for more than 2 midnights for management of necrotizing fasciitis, DKA, MAGDA, severe sepsis Critical Care Time: The high probability of a clinically significant, sudden or life threatening deterioration of the patient's [endocrine, renal, surgical] system(s) required my full and direct attention, intervention and personal management. The critical care time is as shown. This time is in addition to time spent performing any reported procedures but includes the following: [x] Data and vital sign review and interpretation [x] Patient assessment, examination and intervention [x] Documentation [x] Medication orders and management Critical Care Time (min): 90 Coding Level of Care Code Acute Code for [facility] Fwd Diagnoses Necrotizing fasciitis of pelvic region and thigh M72.6 Sepsis A41.9 DKA (diabetic ketoacidosis) E11.10 Type 2 diabetes mellitus without complication, without long-term current use of insulin E11.9 Diabetes mellitus ad terminal makeup operator insulin use: without [facility] use Diabetes mellitus complication status: without complication MAGDA (acute kidney injury) N17.9 Hyponatremia E87.1 Primary hypertension I10 Hypertension type: primary hypertension H/O necrotizing fasciitis Z87.39
[2024-09-10] MEDS: oxyCODONE 5 mg IR Tab/Cap PO (20:18)
--- NOTE | 2024-09-10 20:29 | PC.NURSE ---
Patient c/o pain to right groin. Patient already has PRN Dilaudid for pain, but cannot receive another dose yet. Patient states it doesn't work very well for the pain. Dr. Pina ordered PRN Oxy.
[2024-09-10 20:52] LABS: Glucose Point of Care 243 mg/dL (70-110)
[2024-09-10] MEDS: pantoprazole 40 mg SDV IVP (21:22)
[2024-09-10] MEDS: insulin glargine 100 units/1 mL 15 UNIT SUBCUT (22:25)
[2024-09-11] VITALS (10 sets, daily range): BP systolic 154–170; BP diastolic 82–99; PULSE 73–92; RESP 16–20; TEMP 36.3–36.6; O2SAT 92–98; BMI 33.4
[2024-09-11] MEDS: piperacillin-tazobactam 3.375 GM in sodium chloride 0.9% (plus) 50 ML IV ×3 (01:43→19:43)
[2024-09-11 02:04] LABS: Bilirubin Urine Negative (Negative); Blood Urine 2+ (Negative); Glucose Urine UA 2+ (Normal); Ketones Urine Trace (Negative); Leukocyte Esterase Urine Negative (Negative); Nitrate Urine Negative (Negative); Protein Urine 1+ (Negative); Urine Appearance Clear (CLEAR); Urine Color Yellow (Yellow); Urobilinogen Urine 0.2 mg/dL (Negative)
[2024-09-11 02:09] LABS: Add Urine Microscopic? YES; Bacteria Urine None Seen /hpf; Hyaline Casts Urine 2.05 /lpf; RBC Urine >100 /hpf (0-2); Squamous Epithelial Cell Urine 0-5 /hpf (0-5); WBC Urine 0-5 /hpf (0-5)
[2024-09-11 02:10] LABS: Amphetamines Screen Urine Negative (Negative); Barbiturates Screen Urine Negative (Negative); Benzodiazepines Screen Urine Negative (Negative); Cocaine Screen Urine Negative (Negative); Opiate Screen Urine Positive (Negative); PCP Screen Urine Negative (Negative); THC Screen Urine Negative (Negative)
[2024-09-11 02:14] LABS: Potassium, Radom Urine 14 mmol/L; Urine Creatinine 85 mg/dL (39-259); Urine Random Chloride 46 mmol/L; Urine Random Sodium 61 mmol/L
[2024-09-11 02:50] LABS: Add Urine Culture? Yes; Specific Gravity, Urine 1.031 (1.005-1.030); UA Slide Review UA Slide Review Perf
[2024-09-11] MEDS: HYDROmorphone 0.5 MG/0.5 ML INJ 1 MG IVP (04:18)
[2024-09-11 05:30] LABS: Basophils # 0.1 10^3/uL (0.0-0.1); Basophils % 1.2 %; Eosinophils # 0.3 10^3/uL (0.0-0.8); Hematocrit 42.8 % (37-53); Lymphocytes # 2.6 10^3/uL (0.8-4.8); Lymphocytes % 25.4 %; Mean Corpuscular HGB Conc 34.6 g/dL (30-55); Mean Corpuscular Hemoglobin 29.4 pg (27-33); Mean Corpuscular Volume 85.1 fl (82-101); Mean Platelet Volume 8.3 fL (7.4-10.4); Monocytes # 0.6 10^3/uL (0.2-0.9); Monocytes % 6.1 %; Neutrophils # 5.98 10^3/uL (1.8-7.7); Neutrophils % 59.6 %; Nucleated Red Blood Cells % 0 %; Platelet Count 320 10^3/cmm (157-399); Red Blood Count 5.03 10^6/uL (3.85-5.65); Red Cell Distribution Width 12.5 % (12.1-15.1); White Blood Count 10.03 10^3/uL (3.29-11.43)
[2024-09-11 05:48] LABS: Vancomycin Trough 14.4 ug/mL (10-15)
[2024-09-11 05:57] LABS: Anion Gap 14.8 (5-19); Blood Urea Nitrogen 12 mg/dL (6-20); Calcium 8.2 mg/dL (8.5-10.5); Carbon Dioxide 19 mmol/L (22-29); Chloride 102 mmol/L (98-107); Glomerular Filtration Rate 86.7 mL/min (90-130); Glucose 286 mg/dL (65-115); Osmolality Calculated 284 mOsm/kg (285-295); Potassium 3.8 mmol/L (3.5-5.1); Sodium 132 mmol/L (136-145)
[2024-09-11] MEDS: clindamycin 900 MG/50 ML PREMIX 100 MG IV ×3 (06:01→21:22)
[2024-09-11] MEDS: vancomycin 1,500 MG/300 ML PIGGYBACK 200 MG IV ×2 (06:01→18:02)
[2024-09-11] MEDS: oxyCODONE 5 mg IR Tab/Cap PO ×4 (06:26→21:22)
[2024-09-11 06:39] LABS: Glucose Point of Care 294 mg/dL (70-110)
[2024-09-11] MEDS: lisinopril 5 mg Tablet PO (08:22)
[2024-09-11] MEDS: insulin lispro 100 unit/1 mL SUBCUT ×4 (08:23→21:22)
[2024-09-11] MEDS: docusate sodium 100 mg Capsule PO ×2 (08:23→18:04)
[2024-09-11] MEDS: insulin glargine 100 units/1 mL 10 UNIT SUBCUT (08:24)
[2024-09-11] MEDS: heparin 5,000 unit/mL INJ 1 mL 5000 UNIT SUBCUT ×2 (10:37→21:22)
[2024-09-11 11:35] LABS: Glucose Point of Care 213 mg/dL (70-110)
--- NOTE | 2024-09-11 13:43 | P.PN_ITS ---
Subjective 2 Subjective: Excellent progression in the last 24 hours. White count has normalized patient has been doing well. Vitals/I&O/Wt Last Vital Signs Temp 97.5 F L 09/11/24 12:00 Pulse 73 09/11/24 12:00 Resp 20 H 09/11/24 12:19 BP 154/92 09/11/24 12:00 Pulse Ox 94 09/11/24 12:19 O2 Del Method Room Air 09/11/24 12:00 O2 Flow Rate 3 09/11/24 04:00 09/10/24 09/11/24 09/11/24 22:59 06:59 14:59 Intake Total 500 / 1500 100 / 1600 600 / 600 Output Total 2035 / 2485 1300 / 3785 Balance -1535 / -985 -1200 / -2185 600 / 600 Weight last 48 hrs Weight 233 lb Weight 233 lb Physical Exam 2 : OTHER: Incision with wound VAC in place, no leak, serosanguineous output. Urinary Catheter Management: Cooney: Cath Placed During This Visit: yes Reason for Continuing Indwelling Catheter: Other Urinary Catheter Date of Insertion: 09/07/24 Data 09/11/24 05:21 09/11/24 05:21 Micro: Microbiology 09/07/24 21:07 Gram Stain - Final Buttock Tissue Culture - Final Enterococcus faecalis 09/07/24 21:07 Gram Stain - Final Buttock Abscess Culture - Final Enterococcus faecalis 09/07/24 21:07 Anaerobic Culture - Preliminary Buttock 09/07/24 21:07 Anaerobic Culture - Preliminary Buttock A&P Assessment and plan (1) DKA (diabetic ketoacidosis): (2) Necrotizing fasciitis of pelvic region and thigh: Plan Patient showing excellent progression, his white count is normal now he is willing good no significant pain vital signs are stable. We are working with the finance department to be able to schedule follow-up for him in the wound care clinic to get his wound VAC change. We will get an answer regarding the possibility of doing this over the next 24 hours. Once we resolve the issue of outpatient follow-up I will proceed to remove the current wound VAC and replace it with the portable 1. He will then follow-up on a twice weekly basis in the wound care clinic and with me in 2 weeks to ensure that wound is healing fine. I will keep him on an antibiotic for another 7 to 10 days after he leaves the hospital. Insulin control is being managed by medical team and management is appreciated PDMP PDMP Reviewed: Not Reviewed Attestations 2 Medical Necessity Statement*: Per medical team Coding Level of Care Code Acute Code for Chg Fwd Diagnoses DKA (diabetic ketoacidosis) E11.10 Necrotizing fasciitis of pelvic region and thigh M72.6
[2024-09-11 17:02] LABS: Glucose Point of Care 219 mg/dL (70-110)
--- NOTE | 2024-09-11 20:39 | PM.PN ---
Subjective Subjective: Doing well, no new events overnight. Pain controlled. Wound vac was delivered Afebrile Vitals/I&O/Wt Last Vital Signs Temp 97.7 F 09/11/24 16:00 Pulse 84 09/11/24 16:00 Resp 20 H 09/11/24 16:58 BP 163/90 09/11/24 16:00 Pulse Ox 98 09/11/24 16:58 O2 Del Method Room Air 09/11/24 16:00 O2 Flow Rate 3 09/11/24 04:00 09/11/24 09/11/24 09/11/24 06:59 14:59 22:59 Intake Total 100 / 1600 900 / 900 830 / 1730 Output Total 1300 / 3785 800 / 800 200 / 1000 Balance -1200 / -2185 100 / 100 630 / 730 Weight last 48 hrs Weight 105.687 kg Weight 105.687 kg Physical Exam Narrative: General: No acute distress, AO x3 HEENT: PERRLA, pupils bilaterally equal and reactive Chest: Normal vesicular breath sounds, no added sounds, equal good air entry bilaterally CVS: S1-S2 regular, no murmurs, no tachycardia, no gallops, no rubs Abdomen: Soft, nontender, no organomegaly, bowel sounds present Neuro: No focal deficits, no facial deformity, AO x3, power 5/5 in all limbs Skin: OTHER: Urinary Catheter Management: Martinez: Cath Placed During This Visit: yes, but has since been removed by the nurse Reason for Continuing Indwelling Catheter: Other Urinary Catheter Date of Insertion: 09/07/24 Date Urinary Catheter Removed: 09/11/24 Time Urinary Catheter Discontinued: 13:20 Data 09/11/24 05:21 09/11/24 05:21 Micro: Microbiology 09/07/24 21:07 Gram Stain - Final Buttock Tissue Culture - Final Enterococcus faecalis 09/07/24 21:07 Gram Stain - Final Buttock Abscess Culture - Final Enterococcus faecalis 09/07/24 21:07 Anaerobic Culture - Preliminary Buttock 09/07/24 21:07 Anaerobic Culture - Preliminary Buttock A&P Assessment and plan (1) Necrotizing fasciitis of pelvic region and thigh: (2) Sepsis: (3) DKA (diabetic ketoacidosis): (4) Diabetes mellitus, type II: Qualifiers: Diabetes mellitus custodial insulin use: without custodial use Diabetes mellitus complication status: without complication Qualified Code(s): E11.9 - Type 2 diabetes mellitus without complications (5) MAGDA (acute kidney injury): (6) Hyponatremia: (7) Hypertension: Qualifiers: Hypertension type: primary hypertension Qualified Code(s): I10 - Essential (primary) hypertension (8) H/O necrotizing fasciitis: Plan Abx per surgery Follow up on final culture and sensitivites Wound vac in place, devliered today or home SW to assist with discharge planning with wound vac Plan for 7 days of abx per surgery Uncontoled diabetes mellitus lantus to 15 units Goal < 200 Will need insulin at discharge SW to assist with cost Endocrinology referral after discharge - Additional lantus 10 units in am - Will arrange for endo consult in am Will d/c martinez in am and voiding trials Hydralazine added PRN for BP Possible d/c home tomorrow am PDMP PDMP Reviewed: Not Reviewed Attestations Medical Necessity Statement*: Admission for more than 2 midnights for management of necrotizing fasciitis, DKA, MAGDA, severe sepsis Critical Care Time: The high probability of a clinically significant, sudden or life threatening deterioration of the patient's [endocrine, renal, surgical] system(s) required my full and direct attention, intervention and personal management. The critical care time is as shown. This time is in addition to time spent performing any reported procedures but includes the following: [x] Data and vital sign review and interpretation [x] Patient assessment, examination and intervention [x] Documentation [x] Medication orders and management Critical Care Time (min): 90 Coding Level of Care Code Acute Code for [facility] Diagnoses Necrotizing fasciitis of pelvic region and thigh M72.6 Sepsis A41.9 DKA (diabetic ketoacidosis) E11.10 Type 2 diabetes mellitus without complication, without long-term current use of insulin E11.9 Diabetes mellitus custodial insulin use: without long wall mining machine tender use Diabetes mellitus complication status: without complication MAGDA (acute kidney injury) N17.9 Hyponatremia E87.1 Primary hypertension I10 Hypertension type: primary hypertension H/O necrotizing fasciitis Z87.39
[2024-09-11 20:44] LABS: Glucose Point of Care 281 mg/dL (70-110)
[2024-09-11] MEDS: pantoprazole 40 mg SDV IVP (21:22)
[2024-09-11] MEDS: insulin glargine 100 units/1 mL 15 UNIT SUBCUT (21:22)
[2024-09-12] VITALS: BP 128/72; PULSE 82; RESP 18; TEMP 36.4; O2SAT 92
[2024-09-12 02:48] VITALS: RESP 16
[2024-09-12] MEDS: piperacillin-tazobactam 3.375 GM in sodium chloride 0.9% (plus) 50 ML IV ×2 (02:48→11:27)
[2024-09-12] MEDS: oxyCODONE 5 mg IR Tab/Cap PO (02:48)
[2024-09-12 02:56] LABS: Basophils # 0.1 10^3/uL (0.0-0.1); Basophils % 0.8 %; Eosinophils # 0.4 10^3/uL (0.0-0.8); Eosinophils % 3.1 %; Hematocrit 43.7 % (37-53); Lymphocytes # 3.4 10^3/uL (0.8-4.8); Lymphocytes % 30.4 %; Mean Corpuscular HGB Conc 34.3 g/dL (30-55); Mean Corpuscular Hemoglobin 28.6 pg (27-33); Mean Corpuscular Volume 83.4 fl (82-101); Mean Platelet Volume 8.4 fL (7.4-10.4); Monocytes # 0.7 10^3/uL (0.2-0.9); Monocytes % 6.4 %; Neutrophils # 6.24 10^3/uL (1.8-7.7); Neutrophils % 55.5 %; Nucleated Red Blood Cells % 0 %; Platelet Count 392 10^3/cmm (157-399); Red Blood Count 5.24 10^6/uL (3.85-5.65); Red Cell Distribution Width 12.3 % (12.1-15.1); White Blood Count 11.25 10^3/uL (3.29-11.43)
[2024-09-12 03:17] LABS: Alanine Aminotransferase 16 U/L (0-41); Albumin Level 3.2 g/dL (3.5-5.2); Alkaline Phosphatase 91 U/L (40-130); Anion Gap 16.3 (5-19); Aspartate Amino Transferase 26 U/L (0-40); Blood Urea Nitrogen 8 mg/dL (6-20); Calcium 8.2 mg/dL (8.5-10.5); Carbon Dioxide 20 mmol/L (22-29); Chloride 103 mmol/L (98-107); Globulin 3.2 g/dL (1.3-4.6); Glomerular Filtration Rate 86.7 mL/min (90-130); Glucose 152 mg/dL (65-115); Osmolality Calculated 283 mOsm/kg (285-295); Potassium 3.3 mmol/L (3.5-5.1); Sodium 136 mmol/L (136-145); Total Bilirubin 0.6 mg/dL (0.15-1.2); Total Protein 6.4 g/dL (6.6-8.7)
[2024-09-12 04:00] VITALS: BP 165/89; PULSE 84; RESP 19; TEMP 36.6; O2SAT 98
[2024-09-12] MEDS: vancomycin 1,500 MG/300 ML PIGGYBACK 200 MG IV (05:56)
[2024-09-12] MEDS: clindamycin 900 MG/50 ML PREMIX 100 MG IV (05:56)
[2024-09-12 06:26] LABS: Glucose Point of Care 197 mg/dL (70-110)
--- NOTE | 2024-09-12 06:35 | PC.NURSE ---
Patient having loose stools. This nurse asked patient how long they have been happening and patient states 8 years.
[2024-09-12 07:37] VITALS: BP 154/75; PULSE 68; RESP 16; TEMP 36.8; O2SAT 98
[2024-09-12] MEDS: HYDROmorphone 0.5 MG/0.5 ML INJ IVP (08:38)
[2024-09-12] MEDS: lisinopril 5 mg Tablet PO (08:38)
[2024-09-12] MEDS: lidocaine 2% viscous 15 mL UDC 20 ML TOPICAL (08:38)
[2024-09-12] MEDS: insulin lispro 100 unit/1 mL SUBCUT ×2 (08:38→12:11)
--- NOTE | 2024-09-12 09:36 | P.PN_ITS ---
Subjective 2 Subjective: Patient showing excellent progression after debridement of BECKIE nail necrotizing soft tissue infection. No significant issues, normal vital signs normal white count. Vitals/I&O/Wt Last Vital Signs Temp 98.2 F 09/12/24 07:37 Pulse 68 09/12/24 07:37 Resp 16 09/12/24 07:37 BP 154/75 09/12/24 07:37 Pulse Ox 98 09/12/24 07:37 O2 Del Method Nasal Cannula 09/12/24 07:37 O2 Flow Rate 3 09/12/24 07:37 09/11/24 09/12/24 09/12/24 22:59 06:59 14:59 Intake Total 880 / 1780 150 / 1930 240 / 240 Output Total 750 / 1550 575 / 2125 Balance 130 / 230 -425 / -195 240 / 240 Weight last 48 hrs Weight 233 lb Weight 233 lb Physical Exam 2 : OTHER: On the right side of the perineum there is a surgical incision measuring about 10 x 8 cm, wound VAC dressing was removed the granulation tissue of the bed of the wound is very good, no evidence of residual infection. The wound VAC was replaced Urinary Catheter Management: Cooney: Cath Placed During This Visit: yes, but has since been removed by the nurse Reason for Continuing Indwelling Catheter: Other Urinary Catheter Date of Insertion: 09/07/24 Date Urinary Catheter Removed: 09/11/24 Time Urinary Catheter Discontinued: 13:20 Data 09/12/24 02:31 09/12/24 02:31 Micro: Microbiology 09/07/24 21:07 Gram Stain - Final Buttock Tissue Culture - Final Enterococcus faecalis 09/07/24 21:07 Gram Stain - Final Buttock Abscess Culture - Final Enterococcus faecalis 09/07/24 21:07 Anaerobic Culture - Preliminary Buttock 09/07/24 21:07 Anaerobic Culture - Preliminary Buttock A&P Assessment and plan (1) Diabetes mellitus, type II: Qualifiers: Diabetes mellitus release of information clerk insulin use: without jail use Diabetes mellitus complication status: without complication Qualified Code(s): E11.9 - Type 2 diabetes mellitus without complications (2) Sepsis: (3) Necrotizing fasciitis of pelvic region and thigh: Plan Excellent progression after surgical debridement of NSTI of the perineum. Patient is doing very well. He has an appointment with the wound care center next Sunday. Will follow-up with him in 2 weeks in my office. We will continue for 7 more days of antibiotics as outpatient. PDMP PDMP Reviewed: Not Reviewed Attestations 2 Medical Necessity Statement*: Per medical team Coding Level of Care Code Acute Code for Chg Fwd Diagnoses Type 2 diabetes mellitus without complication, without long-term current use of insulin E11.9 Diabetes mellitus release of information clerk insulin use: without jail use Diabetes mellitus complication status: without complication Sepsis A41.9 Necrotizing fasciitis of pelvic region and thigh M72.6
--- NOTE | 2024-09-12 10:48 | PC.NURSE ---
Dr. Thacker gave a verbal order for Lantus 21 units one time this am.
[2024-09-12 11:07] VITALS: BP 161/84; PULSE 81; RESP 16; TEMP 36.4; O2SAT 98
[2024-09-12] MEDS: insulin glargine 100 units/1 mL 21 UNIT SUBCUT (11:28)
[2024-09-12] MEDS: heparin 5,000 unit/mL INJ 1 mL 5000 UNIT SUBCUT (11:28)
[2024-09-12 11:29] LABS: Glucose Point of Care 218 mg/dL (70-110)
--- NOTE | 2024-09-12 12:16 | PM.DCS ---
Discharge Providers Date of Admission: 09/07/24 21:44 Date of Discharge: September 12, 2024 Attending Provider at Admission: Julio Irby MD Attending Provider at Discharge: Antonieta Thacker Primary Care Provider: Jose A Ward Diagnoses at Discharge Discharge Diagnosis (1) Diabetes mellitus, type II: Status: Chronic Qualifiers: Diabetes mellitus complication status: without complication Diabetes mellitus equipment operator intermodal yard insulin use: without equipment operator intermodal yard use Qualified Code(s): E11.9 - Type 2 diabetes mellitus without complications (2) Sepsis: Status: Acute (3) Necrotizing fasciitis of pelvic region and thigh: Status: Acute Reason for Visit Reason for Visit: boil in groin area Hospital Course Hospital Course 59-year-old male presented with necrotizing fasciitis of the pelvic region and thigh, sepsis, diabetic ketoacidosis (DKA), type II diabetes mellitus without complications, acute kidney injury (MAGDA), hyponatremia, and primary hypertension. The patient has a history of necrotizing fasciitis. On 09/07/2024, tissue and abscess cultures from the buttock grew Enterococcus faecalis. The patient underwent washout, debridement, and wound VAC placement of a perineal wound measuring 10 x 7 x 3 cm, with a Granulofoam sponge used. Antibiotics were administered as per surgical recommendations. Post-operative findings revealed a mostly clean wound with minimal fibrinous material at the base, no drainable abscess, and no progression into surrounding tissues. The Cooney catheter was discontinued, and the patient was able to void. Medications included Lantus 21 units each evening for diabetes management (goal blood glucose < 200 mg/dL) and Lisinopril 5 mg daily. Discussed: - Follow-Up Appointments: Endocrinology referral after discharge. Follow up with PCP and surgery. - Discharge Medications: Augmentin (per surgical recommendations), Lantus 21 units each evening, and Lisinopril 5 mg daily. - Patient Instructions: Continue wound VAC care at home. Social work will assist with medication costs. Physical Exam Narrative: General: No acute distress, AO x3 HEENT: PERRLA, pupils bilaterally equal and reactive Chest: Normal vesicular breath sounds, no added sounds, equal good air entry bilaterally CVS: S1-S2 regular, no murmurs, no tachycardia, no gallops, no rubs Abdomen: Soft, nontender, no organomegaly, bowel sounds present Neuro: No focal deficits, no facial deformity, AO x3, power 5/5 in all limbs Skin: OTHER: Urinary Catheter Management: Cooney: Cath Placed During This Visit: yes, but has since been removed by the nurse Reason for Continuing Indwelling Catheter: Other Urinary Catheter Date of Insertion: 09/07/24 Date Urinary Catheter Removed: 09/11/24 Time Urinary Catheter Discontinued: 13:20 Discharge Data Studies Completed and Pending Completed Studies During Hospitalization Category Date Time Status CT abdomen pelvis w con* [id number] Stat Cat Scan 09/07/24 17:55 Completed CV. echo complete* [id number] Routine Ultrasound 09/08/24 20:01 Completed Pending at discharge Category Date Time Status Anaerobic Culture Routine Lab 09/07/24 21:07 Results Anaerobic Culture Routine Lab 09/07/24 21:07 Results Basic Metabolic Panel AM LABS Lab 09/13/24 04:00 Ordered Blood Culture Stat Lab 09/07/24 17:10 Results Urine Culture Routine Lab 09/11/24 01:30 Results Radiology Impressions Abdomen/Pelvis CT 09/07/24 17:55 IMPRESSION: 1. Open wound involving the right perineum with packing material in place. There is surrounding skin thickening and inflammation at the wound site without organized fluid collection. There is a small amount of subcutaneous emphysema involving the wound likely related to the wound being open. 2. Mild diffuse colonic wall thickening. Clinical correlation for a mild colitis recommended. 3. Cholelithiasis. 4. Cortical renal cysts. 5. Hepatosplenomegaly. COMMENTS: Consistent with the [employer]'s Incidental Findings Committee white paper (J Am Jaskaran Radiol 2018): Any incidental renal lesion less than 1 cm or classified as too small to characterize, or any incidental cystic renal lesion characterized as simple-appearing, is likely benign. No follow-up imaging is recommended for these lesions per consensus recommendations based on imaging criteria. Laboratory Results WBC 11.25 10^3/uL (3.29-11.43) 09/12/24 02:31 RBC 5.24 10^6/uL (3.85-5.65) 09/12/24 02:31 Hgb 15.00 g/dL (11.27-16.99) 09/12/24 02:31 Hct 43.7 % (37-53) 09/12/24 02:31 MCV 83.4 fl (82-101) 09/12/24 02:31 MCH 28.6 pg (27-33) 09/12/24 02:31 MCHC 34.3 g/dL (30-55) 09/12/24 02:31 RDW 12.3 % (12.1-15.1) 09/12/24 02:31 Plt Count 392 10^3/cmm (157-399) 09/12/24 02:31 MPV 8.4 fL (7.4-10.4) 09/12/24 02:31 Neut % (Auto) 55.5 % 09/12/24 02:31 Lymph % (Auto) 30.4 % 09/12/24 02:31 Hughes % (Auto) 6.4 % 09/12/24 02:31 Eos % (Auto) 3.1 % 09/12/24 02:31 Baso % (Auto) 0.8 % 09/12/24 02:31 Neut # (Auto) 6.24 10^3/uL (1.8-7.7) 09/12/24 02:31 Lymph # (Auto) 3.4 10^3/uL (0.8-4.8) 09/12/24 02:31 Hughes # (Auto) 0.7 10^3/uL (0.2-0.9) 09/12/24 02:31 Eos # (Auto) 0.4 10^3/uL (0.0-0.8) 09/12/24 02:31 Baso # (Auto) 0.1 10^3/uL (0.0-0.1) 09/12/24 02:31 Nucleated RBC % (auto) 0 % 09/12/24 02:31 Total Counted 100 (0-100) 09/09/24 03:30 Atypical Lymphs % 6.0 % (0-5) H 09/09/24 03:30 Segmented Neutrophils 63 % 09/09/24 03:30 Band Neutrophils Not Reportable 09/09/24 03:30 Absolute Lymphocytes 4.6 10^3/cmm (1.2-3.4) H 09/09/24 03:30 Lymphocytes (Manual) 20 % 09/09/24 03:30 Monocytes (Manual) 4.0 % 09/09/24 03:30 Absolute Monocytes 0.7 10^3/cmm (0.1-0.6) H 09/09/24 03:30 Eosinophils (Manual) 3 % 09/09/24 03:30 Absolute Eosinophils 0.5 10^3/cmm (0.0-0.7) 09/09/24 03:30 Basophils (Manual) 0.0 % 09/09/24 03:30 Absolute Basophils 0.0 10^3/cmm (0.0-0.2) 09/09/24 03:30 Metamyelocytes 2.0 % 09/09/24 03:30 Myelocytes 2.0 % 09/09/24 03:30 Nucleated RBCs # 0.0 /100WBC 09/12/24 02:31 Platelet Estimate Normal (Normal) 09/09/24 03:30 Sodium 136 mmol/L (136-145) 09/12/24 02:31 Potassium 3.3 mmol/L (3.5-5.1) L 09/12/24 02:31 Chloride 103 mmol/L (98-107) 09/12/24 02:31 Carbon Dioxide 20 mmol/L (22-29) L 09/12/24 02:31 Anion Gap 16.3 (5-19) 09/12/24 02:31 BUN 8 mg/dL (6-20) 09/12/24 02:31 Creatinine 0.9 mg/dL (0.7-1.2) 09/12/24 02:31 GFR Calculation 86.7 mL/min (90-130) L 09/12/24 02:31 Glucose 152 mg/dL (65-115) H 09/12/24 02:31 POC Glucose 218 mg/dL (70-110) H 09/12/24 11:08 Estimat Average Glucose 324 09/07/24 16:57 Hemoglobin A1c 12.9 % (4.0-6.0) H 09/07/24 16:57 Calculated Osmolality 283 mOsm/kg (285-295) L 09/12/24 02:31 Lactic Acid 1.2 mmol/L (0.5-2.2) 09/07/24 23:13 Calcium 8.2 mg/dL (8.5-10.5) L 09/12/24 02:31 Phosphorus 2.2 mg/dL (2.5-4.5) L 09/10/24 03:57 Magnesium 1.7 mg/dL (1.7-2.3) 09/10/24 03:57 Iron 65 ug/dL (59-158) 09/07/24 16:57 TIBC 290 mcg/dl 09/07/24 16:57 % Saturation 22.4 % (20-50) 09/07/24 16:57 Unsat Iron Binding 225 ug/dL (112-347) 09/07/24 16:57 Total Bilirubin 0.6 mg/dL (0.15-1.2) 09/12/24 02:31 AST 26 U/L (0-40) 09/12/24 02:31 ALT 16 U/L (0-41) 09/12/24 02:31 Alkaline Phosphatase 91 U/L (40-130) 09/12/24 02:31 Total Protein 6.4 g/dL (6.6-8.7) L 09/12/24 02:31 Albumin 3.2 g/dL (3.5-5.2) L 09/12/24 02:31 Globulin 3.2 g/dL (1.3-4.6) 09/12/24 02:31 Triglycerides 345 mg/dL (0-150) H 09/08/24 04:28 Triglycerides Cancelled 09/08/24 04:28 Cholesterol 122 mg/dL (0-200) 09/08/24 04:28 Cholesterol Cancelled 09/08/24 04:28 LDL Cholesterol, Calc 30 mg/dL (50-129) L 09/08/24 04:28 LDL Cholesterol, Calc Cancelled 09/08/24 04:28 HDL Cholesterol 23 mg/dL (60-100) L 09/08/24 04:28 HDL Cholesterol Cancelled 09/08/24 04:28 LDL/HDL Ratio 1.30 RATIO (0.00-3.22) 09/08/24 04:28 LDL/HDL Ratio Cancelled 09/08/24 04:28 Cholesterol/HDL Ratio 5.30 mg/dL (1.0-5.00) H 09/08/24 04:28 Cholesterol/HDL Ratio Cancelled 09/08/24 04:28 Vitamin B12 750 pg/mL (232-1245) 09/07/24 16:57 Folate 6.5 ng/mL (4.5-32.2) 09/08/24 04:28 Procalcitonin 0.10 ng/mL (0-0.5) 09/08/24 04:28 Procalcitonin Cancelled 09/08/24 04:28 TSH 1.23 uIU/mL (0.27-4.20) 09/07/24 16:57 Urine Color Yellow (Yellow) 09/11/24 01:30 Urine Appearance Clear (CLEAR) 09/11/24 01:30 Urine pH 6.0 (5-7) 09/11/24 01:30 Ur Specific [place] 1.031 (1.005-1.030) H 09/11/24 01:30 Urine Protein 1+ (Negative) A 09/11/24 01:30 Urine Glucose (UA) 2+ (Normal) H 09/11/24 01:30 Urine Ketones Trace (Negative) 09/11/24 01:30 Urine Blood 2+ (Negative) A 09/11/24 01:30 Urine Nitrate Negative (Negative) 09/11/24 01:30 Urine Bilirubin Negative (Negative) 09/11/24 01:30 Urine Urobilinogen 0.2 mg/dL (Negative) 09/11/24 01:30 Ur Leukocyte Esterase Negative (Negative) 09/11/24 01:30 Urine RBC >100 /hpf (0-2) H 09/11/24 01:30 Urine WBC 0-5 /hpf (0-5) 09/11/24 01:30 Ur Squamous Epith Cells 0-5 /hpf (0-5) 09/11/24 01:30 Amorphous Sediment Not Reportable 09/11/24 01:30 Urine Bacteria None seen /hpf (NONE) 09/11/24 01:30 Hyaline Casts 2.05 /lpf 09/11/24 01:30 Urine Yeast Trace /hpf 09/11/24 01:30 Ur Random Sodium 61 mmol/L 09/11/24 01:30 Ur Random Potassium 14 mmol/L 09/11/24 01:30 Ur Random Chloride 46 mmol/L 09/11/24 01:30 Urine Creatinine 85 mg/dL (39-259) 09/11/24 01:30 Nasal MRSA (PCR) Not detected (Negative) 09/08/24 01:42 Vancomycin Trough 14.4 ug/mL (10-15) 09/11/24 05:21 Urine Opiates Screen Positive ng/mL (Negative) H 09/11/24 01:30 Ur Barbiturates Screen Negative ng/mL (Negative) 09/11/24 01:30 Ur Phencyclidine Scrn Negative ng/mL (Negative) 09/11/24 01:30 Ur Amphetamines Screen Negative ng/mL (Negative) 09/11/24 01:30 U Benzodiazepines Scrn Negative ng/mL (Negative) 09/11/24 01:30 Urine Cocaine Screen Negative ng/mL (Negative) 09/11/24 01:30 U Marijuana (THC) Screen Negative ng/mL (Negative) 09/11/24 01:30 Vitals Last Vital Signs Temp 98.2 F 09/12/24 07:37 Pulse 68 09/12/24 07:37 Resp 16 09/12/24 07:37 BP 154/75 09/12/24 07:37 Pulse Ox 98 09/12/24 07:37 O2 Del Method Nasal Cannula 09/12/24 07:37 O2 Flow Rate 3 09/12/24 07:37 Discharge Plan Discharge Patient Disposition: Home Condition: Stable Prescriptions: New lisinopril 5 mg Tablet 5 mg PO DAILY Qty: 30 0RF insulin glargine [Lantus Solostar U-100 Insulin] 100 unit/mL (3 mL) insulin pen 21 unit SUBCUT QPM Qty: 15 0RF Continued acetaminophen [Tylenol] 325 mg Tablet 325 mg PO QID PRN (Reason: Fever Or Pain) naproxen sodium [Aleve] 220 mg Tablet 440 mg PO Q12H PRN (Reason: Fever Or Pain) No Action metformin 1,000 mg tablet PO (DME) pen needle, diabetic [TechLITE Pen Needle] 32 gauge x 5/32 needle See Rx Instructions .ROUTE .MEDSUPPLY Qty: 1200 Rx Instructions: As directed hydrocodone-acetaminophen 5-325 mg tablet 1 tab PO .q4-6h PRN (Reason: pain) 5 Days Qty: 30 0RF Discharge Orders: Discharge Order (Routine); Ordered 09/12/24 Ordered By: Antonieta Thacker Referrals: Julio Irby MD [Physician] - 09/24/24 8:00 am () JA Burton FNP [Nurse Practitioner] - 09/17/24 9:20 am Nessa Seth MD [Physician] - 10/27/24 9:00 am [facility], [Staff Physician] - 09/16/24 8:00 am (Follow up for wound vac dressing changes. ) Discharge Diet: Usual diet Discharge Activity: Resume usual activity Patient Instructions: Type 2 Diabetes, Lisinopril (By mouth) (Prinivil, Zestril), Amoxicillin/Clavulanate Potassium (By mouth) (Augmentin, Augmentin..., Insulin Glargine (By injection) (Lantus, Lantus SoloStar, Toujeo, Semglee), Sepsis (GEN), Acute Wound Care (DC), Opioid Safety, Post Anesthesia Care Activity Restrictions/Additional Instructions: General Surgery instructions: Please make sure your wound goes working at all times, it will be the stops working for more than 2 hours the wound dressing needs to be removed and replaced with wet and dry dressing until you can get a dressing change in the wound care center. Please keep your appointment with the wound care center. I will see you in 2 weeks in the clinic for follow-up. Return to the hospital you have fever chills drainage from your wound induration or abscess formation anywhere else in your body. Discharge Attestations Time Spent in Discharge Care*: greater than 30 min Status at Discharge: Cognitive status at discharge: cognitively intact, Behavioral status at discharge: cooperative, Functional status at discharge: independent ambulation, Overall status at discharge: patient is progressing back to baseline Quality Metrics Clinical Quality Measures [ No reported AMI, CVA or VTE this stay] Coding Level of Care Code Acute Code for Chg Fwd Diagnoses Type 2 diabetes mellitus without complication, without long-term current use of insulin E11.9 Diabetes mellitus complication status: without complication Diabetes mellitus equipment operator intermodal yard insulin use: without care home use Sepsis A41.9 Necrotizing fasciitis of pelvic region and thigh M72.6
--- NOTE | 2024-09-12 12:22 | PC.NURSE ---
Discussed discharge with patient. New medications and when to take. Discussed follow up appointments and signs and symptoms of worsening infection. Patient was instructed by Dr. Irby on wound vac and what to take with him to wound care clinic. Patient verbalized understanding.
--- NOTE | 2024-09-12 13:17 | PC.NURSE ---
As nursing was delivering the d/c to patient, she noted that patient did not have any regular insulin ordered, only Lantus and he had been receiving both while hospitalized. I called and spoke with Dr. Thacker for clarification and he states that since patient has never been on insulin prior to this admission, he didn't want patient to become Hypoglycemic prior to his appointment his PCP. He also mentioned potential referral to Dr. Seth, however I informed him this referral had not been added to the d/c plan. I offered to place this for him and inform the patient and he agreed. I added the referral to the d/c plan and spoke with Gracie Mckoy RN from Dr. Seth's clinic and obtained an appointment for 10/27/24 at 0900. I wrote this on patient's d/c paperwork as well as Dr. Seth's clinic phone number in case he needed to change the appointment date or time. I spoke with patient and informed him of this and inquired if he had received education on Lantus and he stated he had, but I went ahead and reviewed proper administration once more, including priming the Lantus pen with 2 units prior to administration. He verbalized understanding and I wrote those instructions down for him as well on his d/c paperwork. He expressed concerns with his financial status and I inquired if he had spoken with anybody from [facility]. He states he thought he had, but wasn't sure. I called and spoke with Nadia Zee, Director of [facility] and she provided the phone number he could call to speak with a financial counselor. I placed her on speaker phone and she reassured patient there would be several options for him, we just needed to speak with him about them and would do everything we can to help him. He verbalized understanding and thanked her. He states that his fiance would likely be the person calling on his behalf as she is in charge of all of those things for him. I again reiterated to patient the f/u appointments he had and showed him where their numbers are in case he needed to call any of them. He verbalizes understanding and denies any further questions or concerns. He returned demonstration of Lantus pen usage, including keeping 2 away from the umbilicus and rotating the site to decrease injury. I reviewed Lantus dose again and reiterated eating a high protein snack with it and gave him several examples. He verbalized understanding and denies any further questions or concerns at this time.
--- NOTE | 2024-09-12 14:15 | PC.NURSE ---
Discharge Lantus was discussed with patient. He was presented with box of Lantus pens and a box of needles. This nurse went over how to dial up the pen and how to put the needle tips on the pen. Instructions was given on how to inject the insulin with the pen and count to ten. Remove the pen and discard the tip in a biohazard bin and replace the cap back on the pen. Patient verbalized understanding and did a teach back.
[2024-09-12 14:18] VITALS: BP 161/84; PULSE 81; RESP 16; TEMP 36.4; O2SAT 98
== END 2024-09-12 14:11 | disposition home or self-care (01) | DRG 853 ==
LOC: ER 20:17 → OPS 20:31 → ICU 21:45 → MEDSURG 09-10 16:55
PROVIDERS: Student in an Organized Health Care Education/Training Program; Admitting Provider Surgery; Emergency Provider Emergency Medicine; PCP Nurse Practitioner Family; Visit Provider Hospitalist
PROC: 0JBB0ZZ Excision of Perineum Subcutaneous Tissue and Fascia, Open Approach (ICD-10-PCS; principal; 2024-09-07 20:15)
PROC: 2W16X6Z Compression of Right Inguinal Region using Pressure Dressing (ICD-10-PCS; principal; 2024-09-09 07:00)
PROC: 2W16X6Z Compression of Right Inguinal Region using Pressure Dressing (ICD-10-PCS; 2024-09-09 07:00)
DX: A41.9 Sepsis, unspecified organism (principal); E11.10 Type 2 diabetes mellitus with ketoacidosis without coma; M72.6 Necrotizing fasciitis; N17.9 Acute kidney failure, unspecified; E87.1 Hypo-osmolality and hyponatremia; I10 Essential (primary) hypertension; E78.2 Mixed hyperlipidemia; F17.200 Nicotine dependence, unspecified, uncomplicated; R65.20 Severe sepsis without septic shock; E86.0 Dehydration; Z79.899 Other long term (current) drug therapy; Z79.84 Long term (current) use of oral hypoglycemic drugs
CPT/HCPCS: 36415; 36416; 51702; 74177; 80048; 80053; 80061; 80202; 80306; 81001; 82436; 82570; 82607; 82746; 82962; 83036; 83540; 83550; 83605; 83735; 84100; 84133; 84145; 84300; 84443; 85007; 85025; 87040; 87070; 87075; 87077; 87086; 87176; 87186; 87205; 93306; 94664; 96365; 96366; 96367; 96372; 96374; 96375; 96376; 99291; J0131; J0330; J0360; J1100; J1171; J1200; J1644; J1815; J2270; J2371; J2405; J2470; J2543; J2704; J3010; J3370; J3490; J7030; J7050; J9999; P9045

== ENCOUNTER → 2025-03-04 10:22 | Outpatient (BNVA) | payer MEDICAID, SELFPAY | PROVIDERS: PCP Nurse Practitioner Family; Visit Provider Nurse Practitioner Family | DX: E11.9 Type 2 diabetes mellitus without complications (principal); E78.2 Mixed hyperlipidemia; Z79.899 Other long term (current) drug therapy; I10 Essential (primary) hypertension | CPT/HCPCS: 80053; 80061; 83036; 83721; 85025 ==